=== PATIENT | male | born 1955 | race Caucasian/White ===

== ENCOUNTER 2023-01-07 01:33 | Inpatient (IN) | payer BC, MEDICARE ==
[2023-01-07 01:54] LABS: Glucose,Whole Blood 193 mg/dL (70-110)
[2023-01-07] MEDS ORDERED: SODIUM CHLORIDE 0.9% 1,000 ML IV STA ×2 (01:59)
--- NOTE | 2023-01-07 02:01 | ED ---
SOB HPI - General Chief Complaint: Dizziness Stated Complaint: dizziness Time Seen by Provider: 01/07/23 01:42 Source: patient, EMS, RN notes reviewed, old records reviewed Mode of arrival: EMS Limitations: no limitations - History of Present Illness Initial Comments: This is a 67-year-old male to the emergency department for evaluation of a month plus of severe shortness of breath weakness severely elevated heart rate. Patient states he is normally healthy no heart disease no COPD nonsmoker. Patient is in significant distress with severe exertional dyspnea. Patient is no travel history no known sick contacts no fevers cough or congestion but s everely short of breath and significant exertional shortness of breath. Patient was recently told he has significant swelling of his lower extremity and somewhat did mention that it was possibly concern for DVT. MD Complaint: shortness of breath, cough, chest pain, pain with inspiration, anxiety -: days(s) Radiation: back Severity: severe Severity scale (1-10): 10 Quality: dull Consistency: constant Improves With: nothing Worsens With: nothing Known History Of: COPD, asthma Context: recent URI, recent illness Associated Symptoms: chest pain, cough Treatments Prior to Arrival: none - Related Data Home Medications Medication Instructions Recorded Confirmed metFORMIN HCL ER [Glucophage XR] 1,000 mg PO BID 01/07/23 01/07/23 Previous Rx's Medication Instructions Recorded Apixaban [Eliquis Starter Pack 5 - 10 mg PO DIRECTED 30 Days 01/08/23 (for VTE)] #1 each Allergies Allergy/AdvReac Type Severity Reaction Status Date / Time latex Allergy Rash/Hives Verified 01/07/23 09:12 Review of Systems ROS Statement: Those systems with pertinent positive or pertinent negative responses have been documented in the HPI. ROS Other: All systems not noted in ROS Statement are negative. Past Medical History Past Medical History: No Reported History History of Any Multi-Drug Resistant Organisms: None Reported Past Surgical History: Joint Replacement Past Psychological History: No Psychological Hx Reported Smoking Status: Never smoker Past Alcohol Use History: None Reported Past Drug Use History: None Reported General Exam Limitations: no limitations General appearance: alert, in no apparent distress, anxious Head exam: Present: atraumatic, normocephalic, normal inspection Eye exam: Present: normal appearance, PERRL, EOMI. Absent: scleral icterus, conjunctival injection, periorbital swelling ENT exam: Present: normal exam, mucous membranes moist Neck exam: Present: normal inspection. Absent: tenderness, meningismus, lymphadenopathy Respiratory exam: Present: normal lung sounds bilaterally. Absent: respiratory distress, wheezes, rales, rhonchi, stridor Cardiovascular Exam: Present: normal rhythm, tachycardia, normal heart sounds. Absent: systolic murmur, diastolic murmur, rubs, gallop, clicks GI/Abdominal exam: Present: soft, normal bowel sounds. Absent: distended, tenderness, guarding, rebound, rigid Extremities exam: Present: normal inspection, full ROM, normal capillary refill. Absent: tenderness, pedal edema, joint swelling, calf tenderness Back exam: Present: normal inspection Neurological exam: Present: alert, oriented X3, CN II-XII intact Psychiatric exam: Present: normal affect, normal mood Skin exam: Present: warm, dry, intact, normal color. Absent: rash Course Vital Signs 01/07/23 01/07/23 01/07/23 01:41 01:57 02:01 Temperature 98.2 F Pulse Rate 121 H Respiratory 20 Rate Blood Pressure 152/115 116/87 O2 Sat by Pulse 95 93 L Oximetry 01/07/23 01/07/23 01/07/23 02:39 03:00 04:00 Temperature Pulse Rate 118 H 110 H 109 H Respiratory 20 18 18 Rate Blood Pressure 108/72 117/75 112/87 O2 Sat by Pulse 92 L 92 L 91 L Oximetry 01/07/23 01/07/23 05:22 05:35 Temperature 98.8 F Pulse Rate 112 H Respiratory 18 28 H Rate Blood Pressure 112/82 O2 Sat by Pulse 92 L Oximetry - Reevaluation(s) Reevaluation #1: 01/07/23 02:00 Medical record is reviewed Reevaluation #2: Patient has no change in symptoms here in the ER Reevaluation #3: Patient informed results and questions answered Reevaluation #4: 01/07/23 02:00 Was pt. sent in by a medical professional or institution (, [facility], STEELSCOPE OPERATOR, urgent care, hospital, or shelter...) When possible be specific @ -no Did you speak to anyone other than the patient for history (EMS, parent, family, police, friend...)? What history was obtained from this source @ -no Did you review nursing and triage notes (agree or disagree)? Why? @ -agree Are old charts reviewed (outside hosp., previous admission, EMS record, old EKG, old radiological studies, urgent care reports/EKG's, shelter records)? Report findings @ -yes Differential Diagnosis (chest pain, altered mental status, abdominal pain women, abdominal pain men, vaginal bleeding, weakness, fever, dyspnea, syncope, headache, dizziness, GI bleed, back pain, seizure, CVA, palpatations, mental health, musculoskeletal)? @ -prior EKG interpreted by me (3pts min.). @ -yes X-rays interpreted by me (1pt min.). @ -yes CT interpreted by me (1pt min.). @ -no U/S interpreted by me (1pt. min.). @ -no What testing was considered but not performed or refused? (CT, X-rays, U/S, labs)? Why? @ -none What meds were considered but not given or refused? Why? @ -none Did you discuss the management of the patient with other professionals (professionals i.e. , PA, STEELSCOPE OPERATOR, lab, RT, psych nurse, social security specialist, mineral ore processing labourer, teacher, county health officer, telehealth case manager)? Give summary @ -no Was smoking cessation discussed for >3mins.? @ -no Was critical care preformed (if so, how long)? @ -yes31 Were there social determinants of health that impacted care today? How? (Homelessness, low income, unemployed, alcoholism, drug addiction, transportation, low edu. Level, literacy, decrease access to med. care, retirement, rehab)? @ -none Was there de-escalation of care discussed even if they declined (Discuss DNR or withdrawal of care, Hospice)? DNR status @ -no What co-morbidities impacted this encounter? (DM, HTN, Smoking, COPD, CAD, Cancer, CVA, ARF, Chemo, Hep., AIDS, mental health diagnosis, sleep apnea, morbid obesity)? @ -none Was patient admitted / discharged? Hospital course, mention meds given and route, prescriptions, significant lab abnormalities, going to OR and other pertinent info. @ - 67 male to the emergency department for evaluation severe shortness of breath especially with exertion now. Patient does have significant pulmonary embolus and patient will be admitted for vascular consultation regarding PE and anticoagulation Admitted Undiagnosed new problem with uncertain prognosis? @ -no Drug Therapy requiring intensive monitoring for toxicity (Heparin, Nitro, Insulin, Cardizem)? @ -no Were any procedures done? @ -no Diagnosis/symptom? @ -Pulmonary embolism severe Acute, or Chronic, or Acute on Chronic? @ -Acute Uncomplicated (without systemic symptoms) or Complicated (systemic symptoms)? @ -Complicated Side effects of treatment? @ -no Exacerbation, Progression, or Severe Exacerbation? @ -exacerbation Poses a threat to life or bodily function? How? (Chest pain, USA, NC, pneumonia, PE, COPD, DKA, ARF, appy, cholecystitis, CVA, Diverticulitis, Homicidal, Suicidal, threat to staff... and all critical care pts) @ -yes with severe PE Reevaluation #5: 01/07/23 02:00 Differential Dyspnea: Coronary syndrome, arrhythmia, tamponade, asthma, COPD, pulmonary embolism, pneumonia, pneumothorax, pulmonary effusion, anaphylaxis, diabetic ketoacidosis, flailed chest, pulmonary contusion, diaphragmatic rupture, anemia, neuromuscular, this is not meant to be an all-inclusive list. Medical Decision Making - Medical Decision Making 67 male to the emergency department for evaluation severe shortness of breath especially with exertion now. Patient does have significant pulmonary embolus and patient will be admitted for vascular consultation regarding PE and anticoagulation - Lab Data Result diagrams: 01/08/23 05:42 01/08/23 05:42 Lab Results 01/07/23 01/07/23 01/07/23 Range/Units 01:53 02:00 02:00 WBC 15.9 H (3.8-10.6) k/uL RBC 4.88 (4.30-5.90) m/uL Hgb 15.1 (13.0-17.5) gm/dL Hct 45.3 (39.0-53.0) % MCV 92.9 (80.0-100.0) fL MCH 31.0 (25.0-35.0) pg MCHC 33.4 (31.0-37.0) g/dL RDW 12.9 (11.5-15.5) % Plt Count 319 (150-450) k/uL MPV 7.4 Neutrophils % 77 % Lymphocytes % 17 % Monocytes % 5 % Eosinophils % 1 % Basophils % 0 % Neutrophils # 12.2 H (1.3-7.7) k/uL Lymphocytes # 2.7 (1.0-4.8) k/uL Monocytes # 0.8 (0-1.0) k/uL Eosinophils # 0.1 (0-0.7) k/uL Basophils # 0.0 (0-0.2) k/uL PT 10.2 (9.0-12.0) sec INR 1.0 (<1.2) APTT 20.5 L (22.0-30.0) sec D-Dimer 12.25 H (<0.60) mg/L FEU Sodium (137-145) mmol/L Potassium (3.5-5.1) mmol/L Chloride (98-107) mmol/L Carbon Dioxide (22-30) mmol/L Anion Gap mmol/L BUN (9-20) mg/dL Creatinine (0.66-1.25) mg/dL Est GFR (CKD-EPI)AfAm (>60 ml/min/1.73 sqM) Est GFR (CKD-EPI)NonAf (>60 ml/min/1.73 sqM) Glucose (74-99) mg/dL POC Glucose (mg/dL) 193 H (70-110) mg/dL POC Glu Hem Marker ID Lema, Eli Calcium (8.4-10.2) mg/dL Phosphorus (2.5-4.5) mg/dL Magnesium (1.6-2.3) mg/dL Total Bilirubin (0.2-1.3) mg/dL AST (17-59) U/L ALT (4-49) U/L Alkaline Phosphatase (38-126) U/L Troponin I (0.000-0.034) ng/mL NT-Pro-B Natriuret Pep pg/mL Total Protein (6.3-8.2) g/dL Albumin (3.5-5.0) g/dL 01/07/23 01/07/23 Range/Units 02:00 02:00 WBC (3.8-10.6) k/uL RBC (4.30-5.90) m/uL Hgb (13.0-17.5) gm/dL Hct (39.0-53.0) % MCV (80.0-100.0) fL MCH (25.0-35.0) pg MCHC (31.0-37.0) g/dL RDW (11.5-15.5) % Plt Count (150-450) k/uL MPV Neutrophils % % Lymphocytes % % Monocytes % % Eosinophils % % Basophils % % Neutrophils # (1.3-7.7) k/uL Lymphocytes # (1.0-4.8) k/uL Monocytes # (0-1.0) k/uL Eosinophils # (0-0.7) k/uL Basophils # (0-0.2) k/uL PT (9.0-12.0) sec INR (<1.2) APTT (22.0-30.0) sec D-Dimer (<0.60) mg/L FEU Sodium 138 (137-145) mmol/L Potassium 5.6 H (3.5-5.1) mmol/L Chloride 106 (98-107) mmol/L Carbon Dioxide 19 L (22-30) mmol/L Anion Gap 13 mmol/L BUN 28 H (9-20) mg/dL Creatinine 1.20 (0.66-1.25) mg/dL Est GFR (CKD-EPI)AfAm 72 (>60 ml/min/1.73 sqM) Est GFR (CKD-EPI)NonAf 62 (>60 ml/min/1.73 sqM) Glucose 175 H (74-99) mg/dL POC Glucose (mg/dL) (70-110) mg/dL POC Glu Hem Marker ID Calcium 9.3 (8.4-10.2) mg/dL Phosphorus 3.8 (2.5-4.5) mg/dL Magnesium 1.8 (1.6-2.3) mg/dL Total Bilirubin 1.0 (0.2-1.3) mg/dL AST 41 (17-59) U/L ALT 22 (4-49) U/L Alkaline Phosphatase 58 (38-126) U/L Troponin I 0.093 H* (0.000-0.034) ng/mL NT-Pro-B Natriuret Pep 2310 pg/mL Total Protein 7.2 (6.3-8.2) g/dL Albumin 4.0 (3.5-5.0) g/dL - EKG Data -: EKG Interpreted by Me (EKG is sinus tachycardia 120 NV 182 QRS 102 QTC 373) - Radiology Data Radiology results: report reviewed (Chest x-ray could show pneumonia, CTA chest positive for PE with strain), image reviewed Critical Care Time Critical Care Time: Yes Total Critical Care Time: 31 Disposition Clinical Impression: Pulmonary embolism, Tachycardia, Dyspnea, Pneumonia Disposition: ADMITTED IP TO THIS HOSP Condition: Good Is patient prescribed a controlled substance at d/c from ED?: No Time of Disposition: 04:00
[2023-01-07 02:16] LABS: Basophils % (A) 0 %; Eosinophils # (A) 0.1 k/uL (0-0.7); Eosinophils % (A) 1 %; HCT 45.3 % (39.0-53.0); HGB 15.1 gm/dL (13.0-17.5); Lymphocytes # (A) 2.7 k/uL (1.0-4.8); Lymphocytes % (A) 17 %; MCHC 33.4 g/dL (31.0-37.0); MCV 92.9 fL (80.0-100.0); Mean Platelet Volume 7.4; Monocytes # (A) 0.8 k/uL (0-1.0); Monocytes % (A) 5 %; Neutrophils # (A) 12.2 k/uL (1.3-7.7); Neutrophils % (A) 77 %; Platelet Count 319 k/uL (150-450); RBC 4.88 m/uL (4.30-5.90); RDW 12.9 % (11.5-15.5); WBC 15.9 k/uL (3.8-10.6)
[2023-01-07 02:23] LABS: ALT 22 U/L (4-49); African American GFR (CKD) 72 (>60 ml/min/1.73 sqM); Anion Gap 13 mmol/L; Blood Urea Nitrogen 28 mg/dL (9-20); Calcium 9.3 mg/dL (8.4-10.2); Carbon Dioxide 19 mmol/L (22-30); Chloride 106 mmol/L (98-107); Glucose 175 mg/dL (74-99); Non-African American GFR(CKD) 62 (>60 ml/min/1.73 sqM); Sodium 138 mmol/L (137-145)
[2023-01-07 02:31] LABS: AST 41 U/L (17-59); Alkaline Phosphatase 58 U/L (38-126); Magnesium 1.8 mg/dL (1.6-2.3); NT-Pro-B-Type Natriuretic Pept 2310 pg/mL; Phosphorus 3.8 mg/dL (2.5-4.5); Potassium 5.6 mmol/L (3.5-5.1); Total Protein 7.2 g/dL (6.3-8.2)
[2023-01-07 02:35] LABS: Partial Thromboplastin Time 20.5 sec (22.0-30.0); Prothrombin Time 10.2 sec (9.0-12.0)
[2023-01-07] MEDS ORDERED: HEPARIN SODIUM 1,000 UN/ML (10ML VL) IV ONE (03:55)
[2023-01-07] MEDS ORDERED: HEPARIN SODIUM 1,000 UN/ML (10ML VL) IV PRN (03:55)
[2023-01-07] MEDS ORDERED: HEPARIN SOD,PORK IN 0.45% NACL 25,000 UNIT in 0.45% NACL 1 250ML.BAG IV SCH ×3 (04:00→12:00)
[2023-01-07] MEDS ORDERED: ONDANSETRON 4 MG/2 ML VIAL IVP PRN (04:10)
[2023-01-07] MEDS ORDERED: HYDROmorphone 1 MG/ML 1 ML SYRINGE IVP PRN ×2 (04:10→14:23)
[2023-01-07] MEDS ORDERED: NALOXONE 0.4 MG/ML 1 ML VIAL IV PRN (04:10)
[2023-01-07] MEDS ORDERED: MORPHINE SULFATE 4 MG/ML SYRINGE IV PRN (04:10)
--- NOTE | 2023-01-07 04:11 | XR ---
EXAM: XR Chest, 1 View CLINICAL HISTORY: ITS.REASON XR Reason: cp. Dizziness fatigue and chest pain TECHNIQUE: Frontal view of the chest. COMPARISON: No relevant prior studies available. FINDINGS: Lungs: Patchy airspace disease in the right upper lobe. Pleural space: Unremarkable. No pneumothorax. Heart: Unremarkable. No cardiomegaly. Mediastinum: Unremarkable. Bones/joints: Unremarkable. IMPRESSION: Patchy airspace disease in the right upper lobe. May represent pneumonia. Consider follow-up to ensure resolution.
[2023-01-07] MEDS ORDERED: AZITHROMYCIN 500 MG in SODIUM CHLORIDE 0.9% 250 ML IVPB STA (04:13)
[2023-01-07] MEDS: SODIUM CHLORIDE 0.9% 1,000 ML IV SCH ×3 (04:20→19:57)
--- NOTE | 2023-01-07 04:20 | CT ---
EXAM: CT Angiography Chest With Intravenous Contrast CLINICAL HISTORY: ITS.REASON CT Reason: pe. : Pt. states he recently was sick, possibly with flu. Pt. c/o dizziness and increased SOB on and off x2 weeks. Pt. denies CP, N/V. TECHNIQUE: Axial computed tomographic angiography images of the chest with intravenous contrast. CTDI is 24 mGy and DLP is 499.8 mGy-cm. This CT exam was performed using one or more of the following dose reduction techniques: automated exposure control, adjustment of the mA and/or kV according to patient size, and/or use of iterative reconstruction technique. MIP reconstructed images were created and reviewed. COMPARISON: Chest x-ray dated 01/07/2023 FINDINGS: Pulmonary arteries: Saddle pulmonary embolus and large amount bilateral pulmonary emboli in the main pulmonary arteries extending into most branches. Enlarged main pulmonary artery. Aorta: No acute findings. No thoracic aortic aneurysm. Lungs: Consolidation and patchy airspace disease in the posterior right upper lobe. Pleural space: Unremarkable. No significant effusion. No pneumothorax. Heart: Enlarged right ventricle, flattening of the intraventricular septum. RV/LV ratio 2.3. No significant pericardial effusion. Bones/joints: No acute fracture. No dislocation. Soft tissues: Unremarkable. Lymph nodes: Unremarkable. No enlarged lymph nodes. IMPRESSION: 1. Saddle pulmonary embolus and large amount bilateral pulmonary emboli in the main pulmonary arteries extending into most branches. Evidence of right heart strain. 2. Consolidation and patchy airspace disease in the posterior right upper lobe. Differential diagnosis includes pneumonia, pulmonary infarct, malignancy. Recommend follow-up to ensure resolution. <MYCVCSECTION> Communications: 01/07/23 04:23 Call Doctor Regarding Pulmonary Embolism, called Dr. Neal on 01/07 04:23 (-04:00)
[2023-01-07 05:35] LABS: Glucose,Whole Blood 154 mg/dL (70-110)
[2023-01-07] MEDS ORDERED: DEXTROSE 50% SYRINGE 50 ML IVP PRN ×2 (05:53)
--- NOTE | 2023-01-07 06:02 | P.CNPUL ---
History of Present Illness Consult date: 01/07/23 Requesting physician: Stephen Lacey Reason for consult: pulmonary embolism Chief complaint: Shortness of breath History of present illness: I am seeing this patient in new consultation today 01/07/2023 for a large saddle pulmonary embolism with right-sided heart strain. Patient is a 67-year-old white male with past medical history significant for diabetes mellitus type 2. Patient presented to emergency room earlier this morning complaining of progressively worsening shortness of breath over the last month. He states that this was preceded by right leg pain and swelling. He did see his primary care provider, Dr. Tang, but was reportedly not directed to the ER at that time. Jose chan reports back pain localized to a right upper/medial location that started soon after his shortness of breath began. He denies any cough, hemoptysis, fever, chest pain. Chest CTA on arrival shows a large saddle pulmonary embolism extending into most branches. There was CT evidence of right heart strain with an increased RV/LV ratio 2.3 and a enlarged pulmonary artery. There is also a consolidation in the posterior right upper lobe concerning for pulmonary infarct. Troponin was elevated at 0.093. NT proBNP elevated at 2310. Patient is currently sitting up in bed, on 3 L/m nasal cannula, in no distress at rest. He does get severely short of breath with any exertion. Heart rhythm is currently sinus tachycardia on 114 bpm. Blood pressure is normotensive. Heparin is infusing per high intensity protocol at 18 units per kilogram per hour. Echocardiogram is pending. Vascular services has been consulted for possible EKOS. Patient denies any previous episodes of blood clots or pulmonary emboli. Denies any family history of coagulopathy. Denies any recent trauma or surgery. Denies any history of cancer. Denies any recent prolonged travel. His only reported prescribed medication is metformin. CBC on arrival showed a WBC count of 15.9, hemoglobin 15.1, hematocrit 45.3, platelets 319. BMP shows sodium 138, potassium 5.6, chloride 106, serum bicarb 19, BUN 28, creatinine 1.2, glucose 175. Normal saline is infusing at 130 ML's per hour. The patient is going to be admitted to the intensive care unit for closer monitoring. He is, however, hemodynamically stable at this time. Vascular consult has been obtained for possible EKOS. Review of Systems REVIEW OF SYSTEMS: CONSTITUTIONAL: Denies any recent significant weight loss or weight gain. EYES: Denies change in vision. EARS, NOSE, MOUTH, THROAT: Denies headaches, denies sore throat. CARDIOVASCULAR: Denies chest pain, palpitations or syncopal episodes. RESPIRATORY: See HPI GASTROINTESTINAL: Denies change in appetite, abdominal pain, nausea and vomiting, or diarrhea GENITOURINARY: Denies hematuria, denies infections. MUSKULOSKELETAL: Denies pain, denies swelling. INTEGUMENTARY: Denies rash, denies eczema. NEUROLOGICAL: Denies recent memory loss, no recent seizure activity. PSYCHIATRIC: Denies anxiety, denies depression. HEMATOLOGIC/LYMPHATIC: Denies anemia, denies enlarged lymph node Past Medical History Past Medical History: No Reported History History of Any Multi-Drug Resistant Organisms: None Reported Past Surgical History: Joint Replacement Past Psychological History: No Psychological Hx Reported Smoking Status: Never smoker Past Alcohol Use History: None Reported Past Drug Use History: None Reported Medications and Allergies Allergies Allergy/AdvReac Type Severity Reaction Status Date / Time No Known Allergies Allergy Verified 01/07/23 01:46 Physical Exam Vitals: Vital Signs Temp Pulse Resp BP Pulse Ox 01/07/23 05:22 98.8 F 112 H 18 112/82 92 L 01/07/23 04:00 109 H 18 112/87 91 L 01/07/23 03:00 110 H 18 117/75 92 L 01/07/23 02:39 118 H 20 108/72 92 L 01/07/23 02:01 116/87 01/07/23 01:57 93 L 01/07/23 01:41 98.2 F 121 H 20 152/115 95 Intake and Output 01/06/23 01/06/23 01/07/23 14:59 22:59 06:59 Other: Weight 97.522 kg GENERAL EXAM: Alert, 67-year-old white male, fairly comfortable in no apparent distress while at rest. HEAD: Normocephalic and atraumatic EYES: Normal reaction of pupils, equal size. NOSE: Clear with pink turbinates. THROAT: No erythema or exudates. NECK: No masses, no JVD. CHEST: No chest wall deformity. LUNGS: Equal air entry with inspiratory crackles heard in the right upper lobe. On 3 L/m nasal cannula. He does exhibit significant respiratory distress with any amount of exertion. CVS: S1 and S2 normal with no audible murmur, regular rhythm. No extra heart sounds. Heart rate currently 140 bpm. ABDOMEN: No hepatosplenomegaly, active bowel sounds, no guarding or rigidity. SPINE: No scoliosis or deformity SKIN: No rashes CENTRAL NERVOUS SYSTEM: No focal deficits, tone is normal in all 4 extremities. EXTREMITIES: There is no peripheral edema, clubbing, or cyanosis. Peripheral pulses are intact. Results - Laboratory Findings CBC and BMP: 01/07/23 02:00 01/07/23 02:00 PT/INR, D-dimer PT 10.2 sec (9.0-12.0) 01/07/23 02:00 INR 1.0 (<1.2) 01/07/23 02:00 D-Dimer 12.25 mg/L FEU (<0.60) H 01/07/23 02:00 Abnormal lab findings: Abnormal Labs 01/07/23 01/07/23 01/07/23 01:53 02:00 02:00 WBC 15.9 H Neutrophils # 12.2 H APTT 20.5 L D-Dimer 12.25 H Potassium Carbon Dioxide BUN Glucose POC Glucose (mg/dL) 193 H Troponin I 01/07/23 01/07/23 02:00 02:00 WBC Neutrophils # APTT D-Dimer Potassium 5.6 H Carbon Dioxide 19 L BUN 28 H Glucose 175 H POC Glucose (mg/dL) Troponin I 0.093 H* - Diagnostic Findings Chest x-ray: image reviewed CT scan - chest: image reviewed Assessment and Plan Assessment: Large saddle pulmonary embolism extending into most pulmonary branches with CT evidence of right-sided heart strain. There was also evidence of wedge shaped consolidation in the posterior right upper lobe consistent with Malik hump sign concerning for pulmonary infarct. Infectious process is felt to be unlikely. Troponins elevated at 0.093. NT proBNP elevated at 2300. Echocardiogram is pending. Acute hypoxemic respiratory failure, secondary to above, currently on 3 L/m nasal cannula Leukocytosis, likely reactive to PE Diabetes mellitus type 2, [id number] Obesity, BMI of 30.8 kg/m plan: Patient's medications, labs, and imaging were reviewed Continue IV heparin per high intensity protocol at this time Vascular was consulted for possible EKOS There is CT evidence of right-sided heart strain Obtain stat 2-D echo Obtain venous Doppler of bilateral lower extremities Hemodynamically, the patient appears stable at this time He will be admitted to the intensive care unit for closer monitoring and possible EKOS. I have personally seen and examined the patient, performed the documentation and the assessment and plan as written. Number of minutes spent on the visit:20 Time with Patient: Greater than 30
[2023-01-07] MEDS ORDERED: INSULIN REGULAR 100 UNIT/ML VIAL (IV) IV ONE (06:04)
[2023-01-07] MEDS ORDERED: DEXTROSE 50% SYRINGE 50 ML IVP STA (06:04)
--- NOTE | 2023-01-07 06:04 | P.HPIM ---
History of Present Illness H&P Date: 01/07/23 Chief Complaint: Shortness of breath 67-year-old male with diabetes mellitus Patient coming in with one-month history of progressive shortness of breath and palpitations. He reports the symptoms started gradually but has been getting worse to the point now he feels short of breath even at rest while doing nothing he feels that his heart is always racing denies any associated chest pain denies any nausea vomiting dizziness lightheadedness changes in vision or hearing or any new focal neuro deficits. He denies any history of blood clots or bleeding denies any recent travel her hospital stay. He reports recent history of some injury to his right lower extremity where he dropped some logs on he noticed some swelling and tenderness in his right calf muscle and right thigh for a few days and then improved gradually. He's been following up with his doctor for his heart racing and shortness of breath and he had scheduled an appointment with cardiology on the of this month Today his symptoms got so bad he decided to come in for evaluation In the ED CT angios the chest revealed saddle embolus with right RV strain. Patient reports history of diabetes mellitus denies any cardiac disease history of stroke or blood clots Denies tobacco smoking and illicit drugs or heavy alcohol review of systems Pertinent positives as noted in HPI. All other systems were reviewed and are negative on exam Constitutional: Patient to continue on supplemental oxygen Eyes: Anicteric sclerae, moist conjunctiva, Pupils equal round reactive to light ENMT: NC/AT Oropharynx clear, no erythema, or exudates Neck: Supple, no masses, or JVD No carotid bruits No thyromegaly Lungs: Clear to auscultation Clear to percussion Normal respiratory effort, no accessory muscle use Cardiovascular: Heart tachycardia No murmurs, gallops, or rubs No peripheral edema Abdominal: Soft Nontender, no guarding, rebound or rigidity Abdomen moving with respiration Normoactive bowel sounds No hepatomegaly, No splenomegaly No palpable mass No abdominal wall hernia noted Skin: Normal temperature, tone, texture, turgor No induration No subcutaneous nodules No rash, lesions No ulcers Extremities: No digital cyanosis No clubbing Pedal pulses intact and symmetrical Radial pulses intact and symmetrical No calf tenderness Psychiatric: Alert and oriented to person, place and time Appropriate affect fair judgement Neuro Muscles Strength 5/5 in all 4 extremities Sensation to light touch grossly present throughout Cranial nerves II-XII grossly intact Lymphatics: no palpable cervical or supraclavicular lymph nodes Past Medical History Past Medical History: No Reported History, Diabetes Mellitus History of Any Multi-Drug Resistant Organisms: None Reported Past Surgical History: Joint Replacement Past Psychological History: No Psychological Hx Reported Smoking Status: Never smoker Past Alcohol Use History: None Reported Past Drug Use History: None Reported Medications and Allergies Allergies Allergy/AdvReac Type Severity Reaction Status Date / Time No Known Allergies Allergy Verified 01/07/23 01:46 Physical Exam Vitals: Vital Signs Temp Pulse Resp BP Pulse Ox 01/07/23 05:22 98.8 F 112 H 18 112/82 92 L 01/07/23 04:00 109 H 18 112/87 91 L 01/07/23 03:00 110 H 18 117/75 92 L 01/07/23 02:39 118 H 20 108/72 92 L 01/07/23 02:01 116/87 01/07/23 01:57 93 L 01/07/23 01:41 98.2 F 121 H 20 152/115 95 Intake and Output 01/06/23 01/06/23 01/07/23 14:59 22:59 06:59 Other: Weight 97.522 kg Results CBC & Chem 7: 01/07/23 02:00 01/07/23 02:00 Labs: Abnormal Lab Results - Last 24 Hours (Table) 01/07/23 01/07/23 01/07/23 Range/Units 01:53 02:00 02:00 WBC 15.9 H (3.8-10.6) k/uL Neutrophils # 12.2 H (1.3-7.7) k/uL APTT 20.5 L (22.0-30.0) sec D-Dimer 12.25 H (<0.60) mg/L FEU Potassium (3.5-5.1) mmol/L Carbon Dioxide (22-30) mmol/L BUN (9-20) mg/dL Glucose (74-99) mg/dL POC Glucose (mg/dL) 193 H (70-110) mg/dL Troponin I (0.000-0.034) ng/mL 01/07/23 01/07/23 01/07/23 Range/Units 02:00 02:00 05:34 WBC (3.8-10.6) k/uL Neutrophils # (1.3-7.7) k/uL APTT (22.0-30.0) sec D-Dimer (<0.60) mg/L FEU Potassium 5.6 H (3.5-5.1) mmol/L Carbon Dioxide 19 L (22-30) mmol/L BUN 28 H (9-20) mg/dL Glucose 175 H (74-99) mg/dL POC Glucose (mg/dL) 154 H (70-110) mg/dL Troponin I 0.093 H* (0.000-0.034) ng/mL Assessment and Plan Assessment: 67-year-old male with diabetes mellitus coming in for palpitations and shortness of breath contrast I discussed the case with the ED doctor and accepted the admission for symptomatic PE with saddle embolus and RV strain with anticipated length of stay more than 2 midnights Acute hypoxic respiratory failure Acute saddle pulmonary embolism with large amount bilateral pulmonary emboli in the main pulmonary arteries extending into most branches with RV strain as shown CT angiogram of the chest showed saddle pulmonary embolus along with patchy airspace disease with severe right upper lobe Supplemental oxygen as needed Admission to the ICU Cardiac monitoring Vascular surgery for EKOS Monitor vital signs Heparin drip Check right lower extremity Doppler ultrasound Elevated d-dimer 12.25 Blood work overall unremarkable hemoglobin 15.1 White count 15.9, most likely reactive leukocytosis monitor for any fevers Moderately elevated potassium Potassium 5.6 Continue to monitor closely potassium shifter ordered (insulin and dextrose) Renal function unremarkable sodium 138, BUN 28, creatinine 1.2 Chronic conditions Diabetes mellitus Insulin sliding scale Full code DVT prophylaxis on heparin drip
[2023-01-07 07:37] LABS: Glucose,Whole Blood 224 mg/dL (70-110)
--- NOTE | 2023-01-07 07:54 | US ---
EXAMINATION TYPE: US venous doppler duplex LE RT DATE OF EXAM: 01/07/2023 7:19 AM COMPARISON: NONE CLINICAL INDICATION: Male, 67 years old with history of dvt; new PE's SIDE PERFORMED: Right TECHNIQUE: The lower extremity deep venous system is examined utilizing real time linear array sonog roscoe with graded compression, doppler sonography and color-flow sonography. VESSELS IMAGED: Common Femoral Vein Deep Femoral Vein Greater Saphenous Vein * Femoral Vein Popliteal Vein Small Saphenous Vein * Proximal Calf Veins (* superficial vessels) Right Leg: Internal echoes that are not compressible within proximal calf vein and anterior peroneal Otherwise, Grayscale, color doppler, spectral doppler imaging performed of the deep veins of the lowe r extremities. There is normal flow, compressibility, vascular waveforms. IMPRESSION: Deep vein thrombosis of the proximal calf veins.
[2023-01-07] MEDS: INSULIN ASPART (NovoLOG) 100 UNIT/ML VIAL SQ SCH ×4 (08:07→20:31)
[2023-01-07] MEDS ORDERED: ALTEPLASE 6 MG in SODIUM CHLORIDE 0.9% 144 ML IV ONE ×4 (11:49)
--- NOTE | 2023-01-07 11:52 | P.GSCN ---
History of Present Illness Consult date: 01/07/23 Reason for Consult: Saddle Pulmonary embolism Requesting physician: Stephen Lacey History of present illness: This is a pleasant 67-year-old male with a past medical history including diabetes mellitus who presented to the emergency department with complaints of shortness of breath especially on exertion for over the last month's duration. Progressively getting worse. Patient had elevated d-dimer underwent CT angiogram of the chest saddle pulmonary embolus with large amount bilateral pulmonary emboli with evidence of right heart strain. Patient also with elevated troponins 2. Venous duplex of the right lower extremity shows a positive DVT. Patient denies any previous history of pulmonary embolism. No recent surgeries or travel. No known family history of clotting disorders. Vascular surgery was consulted for pulmonary embolism concern for right heart strain. The patient currently admitted to the ICU with 3 L nasal cannula oxygen saturation 90% heart rate 99 respiratory rate 18 blood pressure 112/82. He is sitting up in bed does not appear to be in any distress. He denies any chest p ain at this time, shortness of breath somewhat improved. He was started on heparin drip. Patient states he did have some swelling in the right lower extremity no significant pain. Review of Systems A 14 point review systems was completed all pertinent positives and negatives as stated in the HPI. Past Medical History Past Medical History: No Reported History, Diabetes Mellitus History of Any Multi-Drug Resistant Organisms: None Reported Past Surgical History: Joint Replacement Past Anesthesia/Blood Transfusion Reactions: No Reported Reaction Past Psychological History: No Psychological Hx Reported Smoking Status: Never smoker Past Alcohol Use History: None Reported Past Drug Use History: None Reported Medications and Allergies Home Medications Medication Instructions Recorded Confirmed Type metFORMIN HCL ER [Glucophage XR] 1,000 mg PO BID 01/07/23 01/07/23 History Allergies Allergy/AdvReac Type Severity Reaction Status Date / Time latex Allergy Rash/Hives Verified 01/07/23 09:12 Surgical - Exam Vital Signs Temp Pulse Resp BP Pulse Ox 98.2 F 121 H 20 152/115 95 01/07/23 01:41 01/07/23 01:41 01/07/23 01:41 01/07/23 01:41 01/07/23 01:41 General appearance: The patient is alert, oriented, appears in no acute distress. HET: Head is normocephalic and atraumatic. Pupils are equal and reactive. Neck: Supple. Heart: Regular. Lungs: Equal expansion, normal respiratory effort. Abdomen: Soft, nontender, nondistended. Extremities: Normal skin color and turgor. Neurological: No focal deficits. Results - Labs 01/07/23 02:00 01/07/23 02:00 Abnormal Lab Results - Last 24 Hours (Table) 01/07/23 01/07/23 01/07/23 Range/Units 01:53 02:00 02:00 WBC 15.9 H (3.8-10.6) k/uL Neutrophils # 12.2 H (1.3-7.7) k/uL APTT 20.5 L (22.0-30.0) sec D-Dimer 12.25 H (<0.60) mg/L FEU Potassium (3.5-5.1) mmol/L Carbon Dioxide (22-30) mmol/L BUN (9-20) mg/dL Glucose (74-99) mg/dL POC Glucose (mg/dL) 193 H (70-110) mg/dL Troponin I (0.000-0.034) ng/mL 01/07/23 01/07/23 01/07/23 Range/Units 02:00 02:00 05:34 WBC (3.8-10.6) k/uL Neutrophils # (1.3-7.7) k/uL APTT (22.0-30.0) sec D-Dimer (<0.60) mg/L FEU Potassium 5.6 H (3.5-5.1) mmol/L Carbon Dioxide 19 L (22-30) mmol/L BUN 28 H (9-20) mg/dL Glucose 175 H (74-99) mg/dL POC Glucose (mg/dL) 154 H (70-110) mg/dL Troponin I 0.093 H* (0.000-0.034) ng/mL 01/07/23 01/07/23 Range/Units 05:40 07:36 WBC (3.8-10.6) k/uL Neutrophils # (1.3-7.7) k/uL APTT (22.0-30.0) sec D-Dimer (<0.60) mg/L FEU Potassium (3.5-5.1) mmol/L Carbon Dioxide (22-30) mmol/L BUN (9-20) mg/dL Glucose (74-99) mg/dL POC Glucose (mg/dL) 224 H (70-110) mg/dL Troponin I 0.165 H* (0.000-0.034) ng/mL Diabetes panel 01/07/23 Range/Units 02:00 Sodium 138 (137-145) mmol/L Potassium 5.6 H (3.5-5.1) mmol/L Chloride 106 (98-107) mmol/L Carbon Dioxide 19 L (22-30) mmol/L BUN 28 H (9-20) mg/dL Creatinine 1.20 (0.66-1.25) mg/dL Glucose 175 H (74-99) mg/dL Calcium 9.3 (8.4-10.2) mg/dL AST 41 (17-59) U/L ALT 22 (4-49) U/L Alkaline Phosphatase 58 (38-126) U/L Total Protein 7.2 (6.3-8.2) g/dL Albumin 4.0 (3.5-5.0) g/dL Calcium panel 01/07/23 Range/Units 02:00 Calcium 9.3 (8.4-10.2) mg/dL Phosphorus 3.8 (2.5-4.5) mg/dL Albumin 4.0 (3.5-5.0) g/dL Pituitary panel 01/07/23 Range/Units 02:00 Sodium 138 (137-145) mmol/L Potassium 5.6 H (3.5-5.1) mmol/L Chloride 106 (98-107) mmol/L Carbon Dioxide 19 L (22-30) mmol/L BUN 28 H (9-20) mg/dL Creatinine 1.20 (0.66-1.25) mg/dL Glucose 175 H (74-99) mg/dL Calcium 9.3 (8.4-10.2) mg/dL Adrenal panel 01/07/23 Range/Units 02:00 Sodium 138 (137-145) mmol/L Potassium 5.6 H (3.5-5.1) mmol/L Chloride 106 (98-107) mmol/L Carbon Dioxide 19 L (22-30) mmol/L BUN 28 H (9-20) mg/dL Creatinine 1.20 (0.66-1.25) mg/dL Glucose 175 H (74-99) mg/dL Calcium 9.3 (8.4-10.2) mg/dL Total Bilirubin 1.0 (0.2-1.3) mg/dL AST 41 (17-59) U/L ALT 22 (4-49) U/L Alkaline Phosphatase 58 (38-126) U/L Total Protein 7.2 (6.3-8.2) g/dL Albumin 4.0 (3.5-5.0) g/dL - Imaging Comments: Chest CT angiogram: Sagittal pulmonary embolus and large amount bilateral pulmonary emboli in the main pulmonary arteries extending into most branches. Evidence of right heart strain. Consolidation and patchy airspace disease in the posterior right upper lobe. Differential diagnosis includes pneumonia, pulmonary infarct, malignancy. Recommend follow-up to ensure resolution. Venous duplex right lower extremity with deep vein thrombosis of the proximal calf veins Assessment and Plan Assessment: 1. Saddle pulmonary embolus with right heart strain 2. Right lower extremity DVT 3. Diabetes mellitus Plan: 1. Keep patient nothing by mouth 2. Continue heparin drip 3. Patient to be scheduled for EKOS today 4. Continue medical management per ICU in primary medical team Thank you for this consultation, we will continue to follow. The impression and plan of care has been dictated as directed. I performed a history and examination of this patient, discussed the same with the dictator. I agree with the dictator's note ,documented as a scribe. Any additional findings or plans will be noted.
[2023-01-07] MEDS ORDERED: fentaNYL (PF) 50 MCG/ML 2 ML AMP IVP ONE (11:55)
[2023-01-07] MEDS ORDERED: IV FLUID CONTINUATION 1,000 ML IV ONE (11:55)
[2023-01-07] MEDS ORDERED: MIDAZOLAM 2 MG/2 ML VIAL IVP ONE (11:55)
[2023-01-07] MEDS ORDERED: LIDOCAINE 1% INJ 10MG/ML (20 ML MDV) SQ ONE (11:56)
[2023-01-07] MEDS ORDERED: SODIUM CHLORIDE 0.9% 1,000 ML IV SCH ×2 (12:00)
--- NOTE | 2023-01-07 12:51 | P.OP ---
Date of Procedure: 01/07/23 Description of Procedure: Preoperative diagnosis: Submassive bilateral pulmonary emboli Postoperative diagnosis: Same Procedure: #1 ultrasound-guided right common femoral vein access of central venous catheters x2 #2 bilateral selective pulmonary angiogram #3 Initiation of pulmonary pharmacal mechanical thrombolysis with EKOS #4 Moderate conscious sedation x 35 minutes, personal monitoring certified RN administration with hemodynamic monitoring Surgeon: Sarah Grover D.O. EBL: Less than 10 mL IV fluids: See records Urine output: See records Drains: None Complications: None immediately apparent Condition: Stable to ICU Operative indication and findings: Patient is a 67-year-old male with recent worsening of breathing along with tachycardia and came to the ER was evaluated and workup and found to have evidence of submassive bilateral pulmonary emboli with lateral component. His troponins are elevated, BNP is elevated. The computed tomography scan shows evidence of right heart strain with moderate ventricle and contrast reflux into the vena cava. On bedside echocardiogram the right heart did appear dilated with flattening of the septum. No final report dictated at the time of taking the patient for intervention. Risks and benefits of going forward with pulmonary thrombolysis were discussed. The patient seemingly understood and was willing to proceed Procedure in detail: [The patient was taken to the radiology suite and placed in supine position. Bilateral groins are prepped and draped in usual sterile fashion. A preprocedure timeout was performed, all parties were in agreement. The right common femoral vein was identified and found to be compressible without any evidence of visible thrombus. The skin overlying was anesthetized 1% lidocaine plain. A multipurpose needle was used and the vein was accessed and a wire was placed. This was done again through a separate access site. 2, 6-Tristanian sheaths were placed. Using catheters and wires the right and left pulmonary arteries were accessed. Pulmonic angiograms were performed confirming positioning. An EKOS ultrasonic pharmacomechanical infusion catheter was placed and confirmed appropriate positioning within the pulmonary arteries. The catheters were hooked up to appropriate fluid infusions for the Optelyse protocol for submassive pulmonary emboli. The sheaths were sutured in place. Dressing was placed. The patient was transferred back to ICU in stable condition having tolerated the procedure well.
[2023-01-07 13:22] LABS: Glucose,Whole Blood 93 mg/dL (70-110)
--- NOTE | 2023-01-07 13:41 | IR ---
EXAMINATION TYPE: IR transcath infusion therapy DATE OF EXAM: 01/07/2023 COMPARISON: NONE HISTORY: Fluoroscopy time. Fluoroscopy was provided to the referring clinician.
[2023-01-07 18:24] LABS: Glucose,Whole Blood 98 mg/dL (70-110)
[2023-01-07 19:12] LABS: Basophils % (A) 0 %; Eosinophils # (A) 0.1 k/uL (0-0.7); Eosinophils % (A) 1 %; HCT 40.7 % (39.0-53.0); HGB 13.3 gm/dL (13.0-17.5); Lymphocytes # (A) 2.7 k/uL (1.0-4.8); Lymphocytes % (A) 20 %; MCH 30.8 pg (25.0-35.0); MCHC 32.7 g/dL (31.0-37.0); MCV 94.1 fL (80.0-100.0); Mean Platelet Volume 7.6; Monocytes # (A) 0.6 k/uL (0-1.0); Monocytes % (A) 5 %; Neutrophils # (A) 9.9 k/uL (1.3-7.7); Neutrophils % (A) 74 %; Platelet Count 259 k/uL (150-450); RBC 4.33 m/uL (4.30-5.90); RDW 12.9 % (11.5-15.5); WBC 13.5 k/uL (3.8-10.6)
[2023-01-07] MEDS: HYDROmorphone 1 MG/ML 1 ML SYRINGE IVP PRN (19:35)
[2023-01-07 20:08] LABS: Glucose,Whole Blood 171 mg/dL (70-110)
[2023-01-08 02:08] LABS: Basophils % (A) 0 %; Eosinophils # (A) 0.2 k/uL (0-0.7); Eosinophils % (A) 2 %; HCT 36.6 % (39.0-53.0); HGB 12.1 gm/dL (13.0-17.5); Lymphocytes # (A) 2.8 k/uL (1.0-4.8); Lymphocytes % (A) 27 %; MCH 30.7 pg (25.0-35.0); Mean Platelet Volume 8.1; Monocytes # (A) 0.7 k/uL (0-1.0); Monocytes % (A) 6 %; Neutrophils # (A) 6.6 k/uL (1.3-7.7); Neutrophils % (A) 64 %; Platelet Count 245 k/uL (150-450); RBC 3.94 m/uL (4.30-5.90); RDW 13.1 % (11.5-15.5); WBC 10.5 k/uL (3.8-10.6)
[2023-01-08] MEDS: HYDROmorphone 1 MG/ML 1 ML SYRINGE IVP PRN (02:38)
[2023-01-08 07:04] LABS: Basophils % (A) 0 %; Eosinophils # (A) 0.2 k/uL (0-0.7); Eosinophils % (A) 2 %; HCT 37.5 % (39.0-53.0); HGB 12.2 gm/dL (13.0-17.5); Lymphocytes # (A) 2.6 k/uL (1.0-4.8); Lymphocytes % (A) 29 %; MCH 30.8 pg (25.0-35.0); MCHC 32.5 g/dL (31.0-37.0); MCV 94.7 fL (80.0-100.0); Mean Platelet Volume 7.5; Monocytes # (A) 0.5 k/uL (0-1.0); Monocytes % (A) 6 %; Neutrophils # (A) 5.6 k/uL (1.3-7.7); Neutrophils % (A) 62 %; Platelet Count 230 k/uL (150-450); RBC 3.96 m/uL (4.30-5.90); RDW 12.8 % (11.5-15.5)
[2023-01-08] MEDS: SODIUM CHLORIDE 0.9% 1,000 ML IV SCH ×2 (07:14→09:50)
[2023-01-08 07:16] LABS: African American GFR (CKD) >90 (>60 ml/min/1.73 sqM); Anion Gap 3 mmol/L; Blood Urea Nitrogen 18 mg/dL (9-20); Calcium 7.6 mg/dL (8.4-10.2); Carbon Dioxide 22 mmol/L (22-30); Chloride 110 mmol/L (98-107); Glucose 120 mg/dL (74-99); Non-African American GFR(CKD) 82 (>60 ml/min/1.73 sqM); Potassium 4.5 mmol/L (3.5-5.1); Sodium 135 mmol/L (137-145)
[2023-01-08 07:27] LABS: Glucose,Whole Blood 158 mg/dL (70-110)
[2023-01-08] MEDS ORDERED: Apixaban Initiation Dose--VTE 5 MG TAB PO SCH (09:00)
[2023-01-08 09:20] LABS: Glucose,Whole Blood 156 mg/dL (70-110)
[2023-01-08] MEDS: INSULIN ASPART (NovoLOG) 100 UNIT/ML VIAL SQ SCH ×3 (09:32→16:48)
--- NOTE | 2023-01-08 11:03 | P.PN ---
Subjective Progress Note Date: 01/08/23 Principal diagnosis: Saddle embolism with right heart strain Patient seen and examined today in the ICU as a follow-up. Yesterday he underwent thrombolysis with EKOS. Catheters and sheaths still in place. Patient without any signs of bleeding. States breathing seems a little bit easier today. Heparin infusing. Grover catheter in place. He is without any other complaints, no abdominal pain, nausea or vomiting. He he is tolerating regular diet. Objective - Vital Signs Vital signs: Vital Signs Temp 98.4 F 01/08/23 08:00 Pulse 77 01/08/23 10:30 Resp 20 01/08/23 10:30 BP 114/76 01/08/23 10:30 Pulse Ox 93 L 01/08/23 10:30 FiO2 21 01/08/23 10:19 Intake & Output 01/07/23 01/08/23 01/08/23 18:59 06:59 18:59 Intake Total 1775 1430 650 Output Total 245 440 205 Balance 1530 990 445 Weight 100.2 kg Intake: IV 1775 1430 650 Sodium Chloride 0.9% 1, 1663 660 580 000 ml @ 130 mls/hr IV . Q7H42M [facility] Rx#:[id number] Sodium Chloride 0.9% 1, 385 35 000 ml @ 35 mls/hr IV . Q24H [facility] Rx#:[id number] Sodium Chloride 0.9% 1, 385 35 000 ml @ 35 mls/hr IV . Q24H [facility] Rx#:[id number] Output: Urine 245 440 205 Other: Voiding Method Indwelling Catheter Indwelling Catheter - Exam General appearance: The patient is alert, oriented, appears in no acute distress. HET: Head is normocephalic and atraumatic. Pupils are equal and reactive. Neck: Supple. Heart: Regular. Lungs: Equal expansion, normal respiratory effort. Abdomen: Soft, nontender, nondistended. Extremities: Normal skin color and turgor. Right groin with catheter and sheaths in place without any hematoma or bleeding. Neurological: No focal deficits. Strength and sensation are grossly intact. - Labs CBC & Chem 7: 01/08/23 05:42 01/08/23 05:42 Labs: Abnormal Lab Results - Last 24 Hours (Table) 01/07/23 01/07/23 01/08/23 Range/Units 18:53 20:07 01:44 WBC 13.5 H (3.8-10.6) k/uL RBC 3.94 L (4.30-5.90) m/uL Hgb 12.1 L (13.0-17.5) gm/dL Hct 36.6 L (39.0-53.0) % Neutrophils # 9.9 H (1.3-7.7) k/uL Sodium (137-145) mmol/L Chloride (98-107) mmol/L Glucose (74-99) mg/dL POC Glucose (mg/dL) 171 H (70-110) mg/dL Calcium (8.4-10.2) mg/dL 01/08/23 01/08/23 01/08/23 Range/Units 05:42 05:42 07:26 WBC (3.8-10.6) k/uL RBC 3.96 L (4.30-5.90) m/uL Hgb 12.2 L (13.0-17.5) gm/dL Hct 37.5 L (39.0-53.0) % Neutrophils # (1.3-7.7) k/uL Sodium 135 L (137-145) mmol/L Chloride 110 H (98-107) mmol/L Glucose 120 H (74-99) mg/dL POC Glucose (mg/dL) 158 H (70-110) mg/dL Calcium 7.6 L (8.4-10.2) mg/dL 01/08/23 Range/Units 09:19 WBC (3.8-10.6) k/uL RBC (4.30-5.90) m/uL Hgb (13.0-17.5) gm/dL Hct (39.0-53.0) % Neutrophils # (1.3-7.7) k/uL Sodium (137-145) mmol/L Chloride (98-107) mmol/L Glucose (74-99) mg/dL POC Glucose (mg/dL) 156 H (70-110) mg/dL Calcium (8.4-10.2) mg/dL Assessment and Plan Assessment: 1. Saddle pulmonary embolus with right heart strain status post thrombolysis with EKOS 2. Right lower extremity DVT 3. Diabetes mellitus Plan: 1. Diet as tolerated 2. Discontinue heparin and start Eliquis 10 mg twice a day 3. Because catheters removed, remove sheath after heparin discontinued 4. Increase activity 1-2 hours after sheath removed 5. If patient remains stable and is able to ambulate and oxygen levels improved patient is clear from vascular surgery for discharge once otherwise medically cleared 6. Medical management per primary medical team and critical care team Thank you for this consultation. The impression and plan of care has been dictated as directed. Dr. Loya I performed a history and examination of this patient, discussed the same with the dictator. I agree with the dictator's note ,documented as a scribe. Any additional findings or plans will be noted.
--- NOTE | 2023-01-08 11:06 | P.PN ---
Subjective Progress Note Date: 01/08/23 No new complaints today. HRs better controlled, s/p EKOS yesterday. No dyspnea. No chest pain. Gen: awake, alert HEENT: normocephalic, atraumatic, good hearing acuity, moist mucous membranes Resp: good air exchange, breathing comfortably with no accessory muscle use CVS: good distal perfusion x 4, GI: soft, NTTP, ND : no SPT, no CVAT, more catheter not present MSK: no pitting edema, no clubbing Neuro: non-focal, moving all extremities Psych: cooperative, euthymic mood Hospital Course: 67-year-old male with diabetes mellitus coming in for palpitations and shortness of breath contrast. In the emergency room, patient was afebrile, 152/115, heart rate 121, 95% on 6 L nasal cannula. CBC demonstrated leukocytosis 13.5, otherwise unremarkable. Basic metabolic panel showed potassium of 5.6, CO2 of 19, BUN of 28. Troponin was 0.128 and trended up to 0.16. BNP was 2310. D- dimer was 12.25. EKG showed sinus tachycardia with left axis deviation and pulmonary disease pattern, no evidence of ischemia. Chest x-ray showed normal- sized heart, with some haziness in the right upper lobe. CT angiography of the chest demonstrated saddle pulmonary embolus with large amount of bilateral pulmo nary emboli in the main pulmonary arteries extending into most branches as well as evidence of right heart strain, also redemonstrated patchy airspace disease in the posterior right upper lobe. Venous Doppler ultrasound showed a deep vein thrombosis in the proximal calf veins of the right side. Case was discussed in the emergency room provider and incision was made to make the patient to [facility] for further management of pulmonary embolism. Vascular surgery was consulted and recommended thrombectomy, which was completed on 01/07. Assessment/plan: Acute hypoxic respiratory failure Acute saddle pulmonary embolism with large amount bilateral pulmonary emboli in the main pulmonary arteries extending into most branches with RV strain as shown -Vitals, lab work had been reviewed and noted in the hospital course above. Documentation of operative note, pulmonology note has been reviewed. -Vascular surgery for EKOS completed on 01/07 -Monitor vital signs -Heparin drip and transitioned to Apixiban following completion of thrombectomy Chronic conditions Diabetes mellitus Insulin sliding scale Full code DVT prophylaxis on Apixiban Objective - Vital Signs Vital signs: Vital Signs Temp 98.4 F 01/08/23 08:00 Pulse 77 01/08/23 10:30 Resp 20 01/08/23 10:30 BP 114/76 01/08/23 10:30 Pulse Ox 93 L 01/08/23 10:30 FiO2 21 01/08/23 10:19 Intake & Output 01/07/23 01/08/23 01/08/23 18:59 06:59 18:59 Intake Total 1775 1430 650 Output Total 245 440 205 Balance 1530 990 445 Weight 100.2 kg Intake: IV 1775 1430 650 Sodium Chloride 0.9% 1, 1663 660 580 000 ml @ 130 mls/hr IV . Q7H42M [facility] Rx#:[id number] Sodium Chloride 0.9% 1, 385 35 000 ml @ 35 mls/hr IV . Q24H [facility] Rx#:[id number] Sodium Chloride 0.9% 1, 385 35 000 ml @ 35 mls/hr IV . Q24H [facility] Rx#:[id number] Output: Urine 245 440 205 Other: Voiding Method Indwelling Catheter Indwelling Catheter - Labs CBC & Chem 7: 01/08/23 05:42 01/08/23 05:42 Labs: Abnormal Lab Results - Last 24 Hours (Table) 01/07/23 01/07/23 01/08/23 Range/Units 18:53 20:07 01:44 WBC 13.5 H (3.8-10.6) k/uL RBC 3.94 L (4.30-5.90) m/uL Hgb 12.1 L (13.0-17.5) gm/dL Hct 36.6 L (39.0-53.0) % Neutrophils # 9.9 H (1.3-7.7) k/uL Sodium (137-145) mmol/L Chloride (98-107) mmol/L Glucose (74-99) mg/dL POC Glucose (mg/dL) 171 H (70-110) mg/dL Calcium (8.4-10.2) mg/dL 01/08/23 01/08/23 01/08/23 Range/Units 05:42 05:42 07:26 WBC (3.8-10.6) k/uL RBC 3.96 L (4.30-5.90) m/uL Hgb 12.2 L (13.0-17.5) gm/dL Hct 37.5 L (39.0-53.0) % Neutrophils # (1.3-7.7) k/uL Sodium 135 L (137-145) mmol/L Chloride 110 H (98-107) mmol/L Glucose 120 H (74-99) mg/dL POC Glucose (mg/dL) 158 H (70-110) mg/dL Calcium 7.6 L (8.4-10.2) mg/dL 01/08/23 Range/Units 09:19 WBC (3.8-10.6) k/uL RBC (4.30-5.90) m/uL Hgb (13.0-17.5) gm/dL Hct (39.0-53.0) % Neutrophils # (1.3-7.7) k/uL Sodium (137-145) mmol/L Chloride (98-107) mmol/L Glucose (74-99) mg/dL POC Glucose (mg/dL) 156 H (70-110) mg/dL Calcium (8.4-10.2) mg/dL
--- NOTE | 2023-01-08 11:17 | P.PN ---
Subjective Progress Note Date: 01/08/23 I am seeing this patient in new consultation today 01/07/2023 for a large saddle pulmonary embolism with right-sided heart strain. Patient is a 67-year-old white male with past medical history significant for diabetes mellitus type 2. Patient presented to emergency room earlier this morning complaining of progressively worsening shortness of breath over the last month. He states that this was preceded by right leg pain and swelling. He did see his primary care provider, Dr. Tang, but was reportedly not directed to the ER at that time. Patient reports back pain localized to a right upper/medial location that started soon after his shortness of breath began. He denies any cough, hemoptysis, fever, chest pain. Chest CTA on arrival shows a large saddle pulmonary embolism extending into most branches. There was CT evidence of right heart strain with an increased RV/LV ratio 2.3 and a enlarged pulmonary artery. There is also a consolidation in the posterior right upper lobe concerning for pulmonary infarct. Troponin was elevated at 0.093. NT proBNP elevated at 2310. Patient is currently sitting up in bed, on 3 L/m nasal cannula, in no distress at rest. He does get severely short of breath with any exertion. Heart rhythm is currently sinus tachycardia on 114 bpm. Blood pressure is normotensive. Heparin is infusing per high intensity protocol at 18 units per kilogram per hour. Echocardiogram is pending. Vascular services has been consulted for possible EKOS. Patient denies any previous episodes of blood clots or pulmonary emboli. Denies any family history of coagulopathy. Denies any recent trauma or surgery. Denies any history of cancer. Denies any recent prolonged travel. His only reported prescribed medication is metformin. CBC on arrival showed a WBC count of 15.9, hemoglobin 15.1, hematocrit 45.3, platelets 319. BMP shows sodium 138, potassium 5.6, chloride 106, serum bicarb 19, BUN 28, creatinine 1.2, glucose 175. Normal saline is infusing at 130 ML's per hour. The patient is going to be admitted to the intensive care unit for closer monitoring. He is, however, hemodynamically stable at this time. Vascular consult has been obtained for possible EKOS. The patient is seen today 01/08/2023 in follow-up in the intensive care unit. He is currently resting comfortably in bed. Awake and alert in no acute distress. Maintaining O2 saturations in the 90s on room air. He did undergo pulmonary thrombolysis with EKOS yesterday. White count 9.0. Hemoglobin 12.2. Platelets 230. Sodium 135. Potassium 4.5. Bicarb 22. BUN 18. Creatinine 0. 96. Glucose 120. He's been initiated on Eliquis. Objective - Vital Signs Vital signs: Vital Signs Temp 98.4 F 01/08/23 08:00 Pulse 77 01/08/23 10:30 Resp 20 01/08/23 10:30 BP 114/76 01/08/23 10:30 Pulse Ox 93 L 01/08/23 10:30 FiO2 21 01/08/23 10:19 Intake & Output 01/07/23 01/08/23 01/08/23 18:59 06:59 18:59 Intake Total 1775 1430 650 Output Total 245 440 205 Balance 1530 990 445 Weight 100.2 kg Intake: IV 1775 1430 650 Sodium Chloride 0.9% 1, 1663 660 580 000 ml @ 130 mls/hr IV . Q7H42M [facility]ARA Rx#:[id number] Sodium Chloride 0.9% 1, 385 35 000 ml @ 35 mls/hr IV . Q24H [facility]ARA Rx#:[id number] Sodium Chloride 0.9% 1, 385 35 000 ml @ 35 mls/hr IV . Q24H [facility]ARA Rx#:[id number] Output: Urine 245 440 205 Other: Voiding Method Indwelling Catheter Indwelling Catheter - Exam GENERAL EXAM: Alert, 67-year-old male, on room air, comfortable in no apparent distress. HEAD: Normocephalic. EYES: Normal reaction of pupils, equal size. NOSE: Clear with pink turbinates. THROAT: No erythema or exudates. NECK: No masses, no JVD. CHEST: No chest wall deformity. LUNGS: Equal air entry with no crackles, wheeze, rhonchi or dullness. CVS: S1 and S2 normal with no audible murmur, regular rhythm. ABDOMEN: No hepatosplenomegaly, normal bowel sounds, no guarding or rigidity. SPINE: No scoliosis or deformity SKIN: No rashes CENTRAL NERVOUS SYSTEM: No focal deficits, tone is normal in all 4 extremities. EXTREMITIES: Groin site stable. There is no peripheral edema. No clubbing, no cyanosis. Peripheral pulses are intact. - Labs CBC & Chem 7: 01/08/23 05:42 01/08/23 05:42 Labs: Abnormal Lab Results - Last 24 Hours (Table) 01/07/23 01/07/23 01/08/23 Range/Units 18:53 20:07 01:44 WBC 13.5 H (3.8-10.6) k/uL RBC 3.94 L (4.30-5.90) m/uL Hgb 12.1 L (13.0-17.5) gm/dL Hct 36.6 L (39.0-53.0) % Neutrophils # 9.9 H (1.3-7.7) k/uL Sodium (137-145) mmol/L Chloride (98-107) mmol/L Glucose (74-99) mg/dL POC Glucose (mg/dL) 171 H (70-110) mg/dL Calcium (8.4-10.2) mg/dL 01/08/23 01/08/23 01/08/23 Range/Units 05:42 05:42 07:26 WBC (3.8-10.6) k/uL RBC 3.96 L (4.30-5.90) m/uL Hgb 12.2 L (13.0-17.5) gm/dL Hct 37.5 L (39.0-53.0) % Neutrophils # (1.3-7.7) k/uL Sodium 135 L (137-145) mmol/L Chloride 110 H (98-107) mmol/L Glucose 120 H (74-99) mg/dL POC Glucose (mg/dL) 158 H (70-110) mg/dL Calcium 7.6 L (8.4-10.2) mg/dL 01/08/23 Range/Units 09:19 WBC (3.8-10.6) k/uL RBC (4.30-5.90) m/uL Hgb (13.0-17.5) gm/dL Hct (39.0-53.0) % Neutrophils # (1.3-7.7) k/uL Sodium (137-145) mmol/L Chloride (98-107) mmol/L Glucose (74-99) mg/dL POC Glucose (mg/dL) 156 H (70-110) mg/dL Calcium (8.4-10.2) mg/dL Assessment and Plan Assessment: Large saddle pulmonary embolism extending into most pulmonary branches with CT evidence of right-sided heart strain. There was also evidence of wedge shaped consolidation in the posterior right upper lobe consistent with Malik hump sign concerning for pulmonary infarct. Troponins elevated at 0.093. NT proBNP elevated at 2300. Echocardiogram is pending. The patient did undergo EKOS yesterday 01/07/2023. Initiated on Eliquis Acute hypoxemic respiratory failure, secondary to above, recovered and currently on room air Leukocytosis, likely reactive to PE, normalized Diabetes mellitus type 2, [id number] Obesity, BMI of 30.8 kg/m Plan: The patient was seen and evaluated Currently stable and on room air Labs and medications reviewed Initiated on Eliquis Home once cleared by vascular surgery I have personally seen and examined the patient, performed the documentation and the assessment and plan as written. Number of minutes spent on the visit: 10.
[2023-01-08 11:51] LABS: Glucose,Whole Blood 108 mg/dL (70-110)
--- NOTE | 2023-01-08 12:54 | CA ---
Transthoracic Echo Report Name: Cleveland Dai Age: 67 Gender: M : 1955 Exam Date: 01/07/2023 09:00 Exam Location: [facility] Ht (in): 70 Wt (lb): 215 Ordering Physician: Stephen Lacey DO Attending/Referring Phys: [id number], Abhijit Sales Floor Associate Rex Wang Procedure CPT: Indications: PE Cardiac Hx: Technical Quality: Technically difficult study Contrast 1: Total Dose (mL): Contrast 2: Total Dose (mL): MEASUREMENTS (Male / Female) Normal Values 2D ECHO LV Diastolic Diameter PLAX 3.3 cm 4.2 - 5.9 / 3.9 - 5.3 cm LV Systolic Diameter PLAX 2.8 cm IVS Diastolic Thickness 1.3 cm 0.6 - 1.0 / 0.6 - 0.9 cm LVPW Diastolic Thickness 1.3 cm 0.6 - 1.0 / 0.6 - 0.9 cm LV Relative Wall Thickness 0.8 RV Internal Dim ED PLAX 3.8 cm LVOT Diameter 2.2 cm Aortic Root Diameter 3.3 cm LA Systolic Diameter LX 1.6 cm 3.0 - 4.0 / 2.7 - 3.8 cm LV Diastolic Volume MOD BP 26.6 cm??? 67 - 155 / 56 - 104 cm??? LV Systolic Volume MOD BP 8.7 cm??? 22 - 58 / 19 - 49 cm??? LV Ejection Fraction MOD BP 67.1 % >= 55 % LV Cardiac Index MOD BP 802.2 cm???/min???m??? LV Diastolic Volume MOD 4C 20.4 cm??? LV Systolic Volume MOD 4C 6.5 cm??? LV Ejection Fraction MOD 4C 68.2 % LV Cardiac Index MOD 4C 628.0 cm???/min???m??? LV Diastolic Length 4C 6.9 cm LV Systolic Length 4C 5.9 cm LV Diastolic Volume MOD 2C 33.6 cm??? LV Systolic Volume MOD 2C 11.8 cm??? LV Ejection Fraction MOD 2C 64.9 % LV Cardiac Index MOD 2C 981.8 cm???/min???m??? LV Diastolic Length 2C 6.6 cm LV Systolic Length 2C 5.8 cm LA Volume 27.9 cm??? 18 - 58 / 22 - 52 cm??? DOPPLER AV Peak Velocity 104.0 cm/s AV Peak Gradient 4.3 mmHg LVOT Peak Velocity 92.4 cm/s LVOT Peak Gradient 3.4 mmHg AV Area Cont Eq pk 3.4 cm??? MV Peak Velocity 90.0 cm/s MV Peak Gradient 3.2 mmHg MV Mean Velocity 38.4 cm/s MV Mean Gradient 0.8 mmHg MV Velocity Time Integral 21.7 cm Mitral E Point Velocity 37.4 cm/s Mitral A Point Velocity 86.1 cm/s Mitral E to A Ratio 0.4 MV Deceleration Time 174.0 ms PV Peak Velocity 52.3 cm/s PV Peak Gradient 1.1 mmHg FINDINGS Left Ventricle Normal LV size . Mild LVH. Left ventricular ejection fraction is estimated at 55-60%. No obvious regional wall motion abnormality. Right Ventricle Severe right ventricular dilatation. Signs of right ventricular pressure overload and volume overload with septal shudder. RVSP could not be estimated. Right Atrium Mild right atrial dilatation. Left Atrium Normal left atrial size. LA volume index= 13ml/m2 Mitral Valve Structurally normal mitral valve. No mitral regurgitation. Aortic Valve Trileaflet aortic valve. No aortic valve stenosis or regurgitation. Tricuspid Valve Tricuspid valve not well visualized. Trace TR. Pulmonic Valve Pulmonic valve not well visualized. No pulmonic regurgitation. Pericardium No pericardial effusion. Prominent Epicardial fat seen. Aorta Normal size aortic root. CONCLUSIONS Technically difficult study. Mild concentric LVH. LVEF estimated at 55-60% in slow No obvious regional wall motion abnormality Severe right ventricular dilatation with signs of right ventricular pressure and volume overload No obvious valvular pathology appreciated No prior echo to compare with Previewed by: Dr Kirill Louis (Electronically Signed) Final Date: 08 January 2023 12:53
[2023-01-08 16:28] LABS: Glucose,Whole Blood 160 mg/dL (70-110)
[2023-01-08 17:12] VITALS: RESP 23
--- NOTE | 2023-01-08 17:18 | P.DS ---
Providers Date of admission: 01/07/23 04:10 Expected date of discharge: 01/08/23 Attending physician: Baron Alexander MD Consults: 01/07/23 04:10 Consult Physician Routine Consulting Provider: Maycol Soto Consult Reason/Comments: pe Do you want consulting provider notified?: Yes Consult Physician Routine Consulting Provider: Sarah More Consult Reason/Comments: PE Do you want consulting provider notified?: Yes Primary care physician: Chuck Tang Hospital Course: Acute hypoxic respiratory failure Acute saddle pulmonary embolism with large amount bilateral pulmonary emboli in the main pulmonary arteries extending into most branches with RV strain as shown Diabetes mellitus Hospital Course: 67-year-old male with diabetes mellitus coming in for palpitations and shortness of breath contrast. In the emergency room, patient was afebrile, 152/115, heart rate 121, 95% on 6 L nasal cannula. CBC demonstrated leukocytosis 13.5, otherwise unremarkable. Basic metabolic panel showed potassium of 5.6, CO2 of 19, BUN of 28. Troponin was 0.128 and trended up to 0.16. BNP was 2310. D- dimer was 12.25. EKG showed sinus tachycardia with left axis deviation and pulmonary disease pattern, no evidence of ischemia. Chest x-ray showed normal- sized heart, with some haziness in the right upper lobe. CT angiography of the chest demonstrated saddle pulmonary embolus with large amount of bilateral pulmonary emboli in the main pulmonary arteries extending into most branches as well as evidence of right heart strain, also redemonstrated patchy airspace disease in the posterior right upper lobe. Venous Doppler ultrasound showed a deep vein thrombosis in the proximal calf veins of the right side. Case was discussed in the emergency room provider and incision was made to make the patient to hospital for further management of pulmonary embolism. Vascular surgery was consulted and recommended thrombectomy, which was completed on 01/07. Patient was successfully transitioned to apixaban following thrombectomy and was discharged home with PCP f/u. I spent 34 minutes coordinating this discharge on 01/08 Gen: awake, alert HEENT: normocephalic, atraumatic, good hearing acuity, moist mucous membranes Resp: good air exchange, breathing comfortably with no accessory muscle use CVS: good distal perfusion x 4, GI: soft, NTTP, ND : no SPT, no CVAT, more catheter not present MSK: no pitting edema, no clubbing Neuro: non-focal, moving all extremities Psych: cooperative, euthymic mood \ Patient Condition at Discharge: Good Plan - Discharge Summary Discharge Rx Participant: Yes New Discharge Prescriptions: New Apixaban [Eliquis Starter Pack (for VTE)] 5 - 10 mg PO DIRECTED 30 Days #1 each Continue metFORMIN HCL ER [Glucophage XR] 1,000 mg PO BID Discharge Medication List metFORMIN HCL ER [Glucophage XR] 1,000 mg PO BID 01/07/23 [History] Apixaban [Eliquis Starter Pack (for VTE)] 5 - 10 mg PO DIRECTED 30 Days #1 each 01/08/23 [Rx] Follow up Appointment(s)/Referral(s): Chuck Tang MD [Primary Care Provider] - 1-2 days Sarah More DO [STAFF PHYSICIAN] - 1 Week Discharge Disposition: HOME SELF-CARE
[2023-01-08 18:29] VITALS: BP 135/87; PULSE 93; TEMP 98.1
== END 2023-01-08 18:45 | disposition home or self-care (01) | DRG 166 ==
LOC: EC 01:33 → 3SCARD 04:10 → 2SICU 05:11
PROVIDERS: ADMIT Internal Medicine; ATTEND Internal Medicine
PROC: 02FR3Z0 Fragmentation of Left Pulmonary Artery, Percutaneous Approach, Ultrasonic (ICD-10-PCS; 2023-01-07)
PROC: B31T1ZZ Fluoroscopy of Left Pulmonary Artery using Low Osmolar Contrast (ICD-10-PCS; 2023-01-07)
PROC: B31S1ZZ Fluoroscopy of Right Pulmonary Artery using Low Osmolar Contrast (ICD-10-PCS; 2023-01-07)
PROC: 02FQ3Z0 Fragmentation of Right Pulmonary Artery, Percutaneous Approach, Ultrasonic (ICD-10-PCS; principal; 2023-01-07 07:30)
DX: I26.92 Saddle embolus of pulmonary artery without acute cor pulmonale (principal); J96.01 Acute respiratory failure with hypoxia; E66.9 Obesity, unspecified; Z68.30 Body mass index [BMI] 30.0-30.9, adult; E87.5 Hyperkalemia; E11.9 Type 2 diabetes mellitus without complications; R77.8 Other specified abnormalities of plasma proteins; Z28.310 Unvaccinated for COVID-19; Z28.21 Immunization not carried out because of patient refusal
CPT/HCPCS: 36415; 37211; 71045; 71275; 80048; 80053; 83036; 83735; 83880; 84100; 84484; 85025; 85379; 85384; 85610; 85730; 87040; 93005; 93306; 96361; 96365; 96368; 99291

== ENCOUNTER → 2023-04-07 | Outpatient (CLI) | payer MEDICARE ==
[2023-04-07 15:31] LABS: BUN/Creat Ratio 14.91 Ratio (12.00-20.00); Blood Urea Nitrogen 16.4 mg/dL (9.0-27.0); Calcium 9.7 mg/dL (8.7-10.3); Carbon Dioxide 28.4 mmol/L (21.6-31.8); Chloride 101 mmol/L (96-109); Glucose 102 mg/dL (70-110); Potassium 4.7 mmol/L (3.5-5.5); Sodium 140 mmol/L (135-145)
[2023-04-07 15:40] LABS: Basophils # (A) 0.02 X 10*3/uL (0.00-0.10); Basophils % (A) 0.2 %; Eosinophils # (A) 0.15 X 10*3/uL (0.04-0.35); Eosinophils % (A) 1.8 %; HCT 42.4 % (39.6-50.0); HGB 14.1 g/dL (13.0-17.0); Lymphocytes # (A) 2.59 X 10*3/uL (0.90-5.00); Lymphocytes % (A) 31.1 %; MCH 30.1 pg (27.0-32.0); MCHC 33.3 g/dL (32.0-37.0); MCV 90.6 FL (80.0-97.0); Mean Platelet Volume 9.4 FL (9.5-12.2); NRBC Per 100 WBC 0 X 10*3/uL (0.00-0.01); Neutrophils # (A) 5.04 X 10*3/uL (1.80-7.70); Neutrophils % (A) 60.7 %; Platelet Count 246 X 10*3/uL (140-440); RBC 4.68 X 10*6/uL (4.40-5.60); RDW 13.3 % (11.5-14.5); WBC 8.32 X 10*3/uL (4.50-10.00)
[2023-04-07 16:45] LABS: Appearance,Urine Clear (Clear); Bilirubin,Urine Negative (Negative); Blood,Urine Large (Negative); Color,Urine Yellow (Yellow); Ketones,Urine Negative (Negative); Nitrite,Urine Negative (Negative); Specific Gravity,Urine 1.018 (1.001-1.030); Urobilinogen,Urine 0.2 E.U./DL
[2023-04-07 18:25] LABS: Bacteria,Urine None Seen (None Seen); Calcium Oxalate Crystals,Urine Present (None Seen)
== END | disposition home or self-care (01) ==
LOC: LABPAT 09:16
PROVIDERS: ATTEND Urology
DX: Z01.812 Encounter for preprocedural laboratory examination (principal); N20.0 Calculus of kidney; R31.29 Other microscopic hematuria
CPT/HCPCS: 80048; 81001; 85025; 87086

== ENCOUNTER 2023-04-14 08:03 | Day surgery (SDC) | payer MEDICARE ==
[2023-04-09 15:04] VITALS: BMI 30.8
--- NOTE | 2023-04-13 18:57 | P.GSHP ---
History of Present Illness H&P Date: 04/13/23 67 yo male with a painful 1 cm right renal pelvic stones on anticoagulation who comes for a right ureteroscopy with laser lithotripsy. He cannot come off his anticoagulation because of a pe in january andtherefore is not a candidate for eswl or pcnl.. the risks and complications have been discussed including recurrence of his PE have been explained understood and accepted - Constitutional Constitutional: Denies chills, Denies fever - EENT Eyes: denies blurred vision, denies pain Ears, nose, mouth and throat: Denies headache, Denies sore throat - Cardiovascular Cardiovascular: Denies chest pain, Denies shortness of breath - Respiratory Respiratory: Denies cough, Denies 7 - Gastrointestinal Gastrointestinal: Denies abdominal pain, Denies diarrhea, Denies nausea, Denies vomiting - Genitourinary (Female) Genitourinary: Denies dysuria, Denies hematuria - Genitourinary (Male) Genitourinary: Denies dysuria, Denies hematuria - Musculoskeletal Musculoskeletal: Denies myalgias - Integumentary Integumentary: Denies pruritus, Denies rash - Neurological Neurological: Denies numbness, Denies weakness - Psychiatric Psychiatric: Denies anxiety, Denies depression - Endocrine Endocrine: Denies fatigue, Denies weight change Past Medical History Past Medical History: Diabetes Mellitus, Hyperlipidemia, Osteoarthritis (OA), Pulmonary Embolus (PE) Additional Past Medical History / Comment(s): 01/07/23 hospitalized for large saddle PE with right heart strain- EKOS procedure was done., hx kidney stones History of Any Multi-Drug Resistant Organisms: None Reported Past Surgical History: Orthopedic Surgery Additional Past Surgical History / Comment(s): meniscus repair right knee, left shoulder surgery , right cataract., EKOS procedure for saddle PE 01/07/23. Past Anesthesia/Blood Transfusion Reactions: No Reported Reaction Past Psychological History: No Psychological Hx Reported Smoking Status: Former smoker Past Alcohol Use History: None Reported Additional Past Alcohol Use History / Comment(s): quit smoking age 35, smoked less than a ppd. Past Drug Use History: None Reported Medications and Allergies Home Medications Medication Instructions Recorded Confirmed Type metFORMIN HCL ER [Glucophage XR] 1,000 mg PO BID 01/07/23 04/09/23 History Apixaban [Eliquis Starter Pack 5 mg PO BID 04/09/23 04/09/23 History (for VTE)] Simvastatin [Zocor] 40 mg PO HS 04/09/23 04/09/23 History Allergies Allergy/AdvReac Type Severity Reaction Status Date / Time latex Allergy Itching, Verified 04/09/23 14:46 red skin Surgical - Exam - General well developed, well nourished, no distress - Eyes normal ocular movement, no icteric - ENT no hearing loss, no congestion - Neck no masses, trachea midline - Respiratory normal respiratory effort, clear to auscultation - Abdomen Abdomen: soft, non tender, no guarding, no rigid, no rebound - Integumentary no rash, no abnormal pigmentation - Neurologic no disoriented, no combative - Psychiatric oriented to time, oriented to person, oriented to place, speech is normal, memory intact Results - Imaging CT scan - abdomen: report reviewed, image reviewed CT scan - pelvis: report reviewed, image reviewed US - abdomen: image reviewed Assessment and Plan Assessment: Impression: right renal calculous Plan; right ureteroscopy with laser lithotripsy, possible stent.
[~2023-04-14 08:03] MED LIST: DEXAMETHASONE SOD PHOSPHATE 4 MG/ML 1 ML VIAL IV ONE; HYDROmorphone 0.5 MG/0.5 ML SYRINGE IVP PRN; LACTATED RINGERS 1,000 ML IV SCH; LIDOCAINE 1% (10MG/ML) FOR IV START INTRADERMA PRN; MIDAZOLAM 2 MG/2 ML VIAL IV PRN; ONDANSETRON 4 MG/2 ML VIAL IVP ONE
[2023-04-14 09:00] LABS: Glucose,Whole Blood 132 mg/dL (70-110)
--- NOTE | 2023-04-14 09:02 | XR ---
EXAMINATION TYPE: XR KUB DATE OF EXAM: 04/14/2023 COMPARISON: CT 02/15/2023 INDICATION: Renal stones TECHNIQUE: Single view abdomen supine view FINDINGS: There is a normal bowel gas pattern. Psoas margins are normal. No organomegaly is present. There is a 1.6 cm oval density to the right of the L1-2 disc level may be within the right proximal u reter. No additional suspicious calcifications evident. IMPRESSION: 1. 1.6 cm right ureteral calcification.
[2023-04-14] MEDS ORDERED: DEXAMETHASONE SOD PHOSPHATE 4 MG/ML 1 ML VIAL IVP ONE (09:20)
[2023-04-14] MEDS ORDERED: ONDANSETRON 4 MG/2 ML VIAL IVP ONE (09:21)
[2023-04-14] MEDS ORDERED: MIDAZOLAM 2 MG/2 ML VIAL ONE (09:23)
[2023-04-14] MEDS ORDERED: LIDOCAINE 1% INJ 10MG/ML (20 ML MDV) ONE (09:23)
[2023-04-14] MEDS ORDERED: fentaNYL (PF) 50 MCG/ML 2 ML AMP ONE (09:23)
[2023-04-14] MEDS ORDERED: PROPOFOL 10 MG/ML 20 ML VIAL IV ONE (09:23)
--- NOTE | 2023-04-14 11:03 | P.OP ---
Date of Procedure: 04/14/23 Preoperative Diagnosis: Right ureteral calculus large Postoperative Diagnosis: Same Procedure(s) Performed: cystoscopy, right ureteroscopy with laser lithotripsy, placement of 626 stent Anesthesia: TABITHAA Surgeon: Gerardo Harden Estimated Blood Loss (ml): 10 Pathology: other Condition: stable (Stone) Disposition: PACU Indications for Procedure: Patient is 67. He has a 16 mm UPJ stone. He is on anticoagulation because of pulmonary embolus in January. He is having pain. He comes for a right ureteroscopy with laser lithotripsy Description of Procedure: Patient brought to the operating suite. Placed on the operating table in a supine position. Placed lithotomy position with a sterile prep and drape. Cystoscopy Foroblique lens and 21-Urdu sheath identifies a trilobar obstructing prostate. The bladder wall shows moderate trabeculation. There is no tumor seen. The right ureteral orifice is identified and intubated with an 035 wire passed up into the kidney. Over the wires passed 31-93-Aimiea reentry sheath. The inner sheath is removed from the right ureter and then I passed the flexible ureteroscope up the right ureter or identify a trabeculated jagged large UPJ stone impacted 275 laser probe the stone is broken into very tiny fragments and flushed out of the ureter. Eventually the stone was broken such that I passed into the UPJ. I basket the largest fragments. Then of the procedure I looked throughout the collecting system and see no remaining stone. Do a pullout ureteroscopy there is no remaining stone. I reintroduced the cystoscope into the bladder and pass an 035 wire up into the kidney. Over the wires passed a 6 x 26 double-J catheter that coils in the right renal pelvis and the bladder. The bladder strain the patient's awake and returned recovery room good condition. He'll be discharged home upon recovery. The stent will remain in 2-3 weeks.
[2023-04-14 11:04] LABS: Glucose,Whole Blood 107 mg/dL (70-110)
[2023-04-14 11:05] VITALS: TEMP 97.2
[2023-04-14] MEDS ORDERED: LACTATED RINGERS 1,000 ML IV ONE ×2 (11:51→12:27)
[2023-04-14 12:22] VITALS: BP 154/92; PULSE 77; RESP 20
--- NOTE | 2023-04-14 19:52 | FL ---
Fluoroscopy INDICATION: Pain FINDINGS: Fluoroscopy time: 17 seconds. Total dose area product (DAP) in uGy*m?, mGy*cm? (or similar): 2.7923 Images obtained: 5. IMPRESSION: 1. Documentation of fluoroscopy.
== END 2023-04-14 12:40 | disposition home or self-care (01) ==
LOC: OR 08:03
PROVIDERS: ATTEND Urology
DX: N20.1 Calculus of ureter (principal); E11.9 Type 2 diabetes mellitus without complications; E78.5 Hyperlipidemia, unspecified; M19.90 Unspecified osteoarthritis, unspecified site; Z86.711 Personal history of pulmonary embolism; Z87.442 Personal history of urinary calculi; Z98.890 Other specified postprocedural states; Z87.891 Personal history of nicotine dependence; Z79.01 Long term (current) use of anticoagulants; Z79.84 Long term (current) use of oral hypoglycemic drugs; Z91.040 Latex allergy status; Z79.899 Other long term (current) drug therapy
CPT/HCPCS: 82365; 74018; 52356; C2625; C1769; J2250; J1100; J0690; J2405; J2001; J3010; J2704

== ENCOUNTER → 2023-08-30 | Outpatient (CLI) | payer MEDICARE ==
--- NOTE | 2023-08-30 08:59 | US ---
EXAMINATION TYPE: US liver DATE OF EXAM: 08/30/2023 COMPARISON: CT 01/07/2023 02/15/2023. CLINICAL INDICATION: Male, 68 years old with history of R94.5 ABNORMAL RESULTS OF LIVER FUNCTION STUD IES; Hx renal stones with lithotripsy; Patient on blood thinners TECHNIQUE: Multiple sonographic images of the right upper quadrant are obtained. FINDINGS: EXAM MEASUREMENTS: Liver Length: 15.8 cm Gallbladder Wall: 0.1 cm CBD: 0.2 cm Right Kidney: 10.3 x 5.8 x 5.5 cm BRUSH CUTTER NOTES: Pancreas: wnl Liver: Discrete, illdefined, echogenic area adjacent to GB in right liver lobe = 2.7 x 1.4 x 1.6 cm which is seen dating back to at least 01/07/2023. Gallbladder: wnl Evidence for sonographic Dominguez's sign: No CBD: wnl Right Kidney: wnl IMPRESSION: Lesion within the liver near the gallbladder fossa favored to represent focal fatty infiltration give n findings on prior exam with background of hepatic steatosis.. This can be confirmed with MRI liver mass protocol.
== END | disposition home or self-care (01) ==
LOC: RADUSWWP 07:31
PROVIDERS: ATTEND Family Medicine
DX: K76.89 Other specified diseases of liver (principal); R94.5 Abnormal results of liver function studies; Z79.01 Long term (current) use of anticoagulants; Z87.442 Personal history of urinary calculi
CPT/HCPCS: 76705

== ENCOUNTER → 2023-09-01 | Outpatient (CLI) | payer MEDICARE ==
[2023-09-01 12:59] LABS: African American GFR (CKD) 80 (>60 ml/min/1.73 sqM); Blood Urea Nitrogen 17 mg/dL (9-20); Non-African American GFR(CKD) 69 (>60 ml/min/1.73 sqM)
--- NOTE | 2023-09-01 14:05 | CT ---
CTA CHEST EXAMINATION TYPE: CT angio chest DATE OF EXAM: 09/01/2023 INDICATION: SOB, hx of PE CT DLP: 544 mGycm, Automated exposure control for dose reduction was used. CONTRAST: Patient injected with 100 ml mL of Isovue 370. COMPARISON: 01/07/2023 TECHNIQUE: CT of the chest is performed on a spiral scan at 2 mm thick sections. Study is performed with intravenous contrast timed for evaluation for pulmonary embolism. This will limit additional po rtions of the evaluation. 3-D MIP images reconstructed by the technologist are reviewed on the compu ter in the coronal and sagittal planes. FINDINGS: No persistent filling defects are evident to suggest an acute pulmonary embolism. No mediastinal or hilar adenopathy enlarged by CT criteria is evident. The ascending aorta diameter at the level of the main pulmonary artery is 3.2 cm. The main pulmonary artery diameter at the bifurcation is 3.0 cm. Minimal infiltrate is in the right upper lung field. Example image [id number], image 45. Limited CT sections were through the upper abdomen. Upper abdomen appears unremarkable. IMPRESSION: 1. No suspicious pulmonary embolism. 2. Minimal infiltrate may be within the right upper lung field and lung windows. Follow-up can be per formed as clinically indicated.
== END | disposition home or self-care (01) ==
LOC: RADCTMAIN 12:06
PROVIDERS: ATTEND Internal Medicine Hematology & Oncology
DX: I26.99 Other pulmonary embolism without acute cor pulmonale (principal); R91.8 Other nonspecific abnormal finding of lung field; D68.59 Other primary thrombophilia; I82.491 Acute embolism and thrombosis of other specified deep vein of right lower extremity; E11.9 Type 2 diabetes mellitus without complications
CPT/HCPCS: 82565; 84520; 71275; 36415; Q9967

== ENCOUNTER → 2023-09-18 | Outpatient (CLI) | payer MEDICARE ==
--- NOTE | 2023-09-18 15:18 | MR ---
EXAMINATION TYPE: MR abdomen wo/w con DATE OF EXAM: 09/18/2023 12:57 PM CLINICAL INDICATION:Male, 68 years old with history of R16.0 HEPATOMEGALY; PHH, Hepatomegaly, cyst on liver COMPARISON: Ultrasound 08/30/2023 TECHNIQUE: Multiplanar multi-sequence imaging was performed without contrast. Post contrast imaging was performed. Post IV contrast subtraction images were also submitted for review. IV Contrast: 9.5 cc Gadavist FINDINGS: LOWER CHEST: No gross irregularity. ABDOMEN Liver: No evidence for hepatic steatosis or cirrhosis. There is focal fatty infiltration with signal dropout on in the gallbladder fossa shift chemical shift out of phase imaging image 68. Gallbladder and Bile ducts: No evidence for ductal dilation, or biliary stricture or evidence of chol edocholithiasis. The gallbladder is within normal limits. Pancreas: No ductal dilation. No evidence for solid mass. Spleen: Normal for size. Adrenal glands: Unremarkable. Kidneys: No evidence for obstructive uropathy. No suspicious renal masses. Peripelvic bilateral renal cysts left greater than right. Stomach and Bowel: No evidence for bowel wall thickening or evidence for obstruction. Scattered colon ic diverticula present. The appendix is normal. Retroperitoneum/Peritoneum: No evidence of pneumoperitoneum or free fluid. Vasculature: No aortic aneurysm. Musculoskeletal: The osseous structures appear intact. Lymph Nodes: No gross evidence for lymphadenopathy. Abdominal wall: Unremarkable. IMPRESSION: No suspicious liver lesions. Area of concern is confirmed to be focal fatty infiltration. No acute ab dominal process.
== END | disposition home or self-care (01) ==
LOC: RADMRIMAIN 11:31
PROVIDERS: ATTEND Family Medicine
DX: K76.0 Fatty (change of) liver, not elsewhere classified (principal); K76.89 Other specified diseases of liver; R16.0 Hepatomegaly, not elsewhere classified
CPT/HCPCS: 74183; A9585

== ENCOUNTER 2023-11-10 07:13 | Day surgery (SDC) | payer MEDICARE, OTHER ==
[~2023-11-10 07:13] MED LIST changes: -DEXAMETHASONE SOD PHOSPHATE 4 MG/ML 1 ML VIAL IV ONE; -HYDROmorphone 0.5 MG/0.5 ML SYRINGE IVP PRN; -LACTATED RINGERS 1,000 ML IV SCH; -LIDOCAINE 1% (10MG/ML) FOR IV START INTRADERMA PRN; -MIDAZOLAM 2 MG/2 ML VIAL IV PRN; -ONDANSETRON 4 MG/2 ML VIAL IVP ONE; +TETRACAINE 0.5% OPHTH (PF) DROPS 4 ML BTL OP PRN
[2023-11-10] MEDS: IV FLUID CONTINUATION 1,000 ML IV ONE (07:45)
[2023-11-10] MEDS: PHENYLEPHRINE 2.5% OPHTH DRP 2ML OP PRN (07:59)
[2023-11-10] MEDS: LACTATED RINGERS 1,000 ML IV SCH (07:59)
[2023-11-10 08:02] LABS: Glucose,Whole Blood 115 mg/dL (70-110)
[2023-11-10] MEDS: CYCLOPENTOLATE 1% OPHTH SOLN 2 ML BTL OP PRN (08:02)
[2023-11-10 08:04] VITALS: TEMP 97.2
[2023-11-10] MEDS ORDERED: MIDAZOLAM 2 MG/2 ML VIAL ONE (09:08)
[2023-11-10] MEDS ORDERED: fentaNYL (PF) 50 MCG/ML 2 ML AMP ONE (09:08)
[2023-11-10] MEDS ORDERED: TRIAMCINOLONE ACETONIDE 40 MG/ML 1 ML VIAL IM ONE (09:15)
[2023-11-10] MEDS: TRIAMCINOLONE ACETONIDE 40 MG/ML 1 ML VIAL IM ONE ×2 (09:26→09:30)
[2023-11-10] MEDS: TIMOLOL 0.5% OPHTH DROPS 5 ML BTL OP PRN (09:31)
[2023-11-10] MEDS: HYALURONATE SODIUM INTRAOCULAR 1 EACH SYRINGE (12MG/ML) INTRAOCULA ONE (09:31)
[2023-11-10] MEDS: MOXIFLOXACIN HCL 0.5% DROPS 3 ML BTL OP PRN (09:31)
[2023-11-10] MEDS: LIDOCAINE 1% (PF) 10MG/ML VIAL MISCELLANE ONE (09:32)
[2023-11-10] MEDS: BALANCED SALT IRRIG SOLN COMB2 15 ML IRRIG.SOLN INTRAOCULA ONE (09:32)
[2023-11-10] MEDS: EPINEPHrine (PF) 0.3 ML in BALANCED SALT IRRIG SOLN COMB2 500 ML IRRIGATION ONE (09:33)
--- NOTE | 2023-11-10 10:07 | P.OP ---
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
[2023-11-10 10:32] VITALS: BP 115/76; PULSE 63; RESP 18
--- NOTE | 2023-11-11 10:30 | OP ---
OPERATIVE REPORT DATE OF SERVICE : 11/10/2023 PROCEDURE: Intraocular lens exchange of the right eye. PREOPERATIVE DIAGNOSES: Uveitis glaucoma, hyphema syndrome. POSTOPERATIVE DIAGNOSES: Uveitis glaucoma, hyphema syndrome. ANESTHESIA: Topical. ESTIMATED BLOOD LOSS: None. SPECIMEN TAKEN: Previously implanted one-piece acrylic intraocular lens from the right eye. HISTORY: This is a patient who underwent cataract operation approximately a year and a quarter ago in a different facility, who had continued to experience significant discomfort as well as increased intra-ocular pressures from the eye following the cataract operation, the original cataract operation was complicated with a dropped nucleus requiring vitrectomy and apparently sulcus fixation of a standard one-piece acrylic eye well into the ciliary sulcus. The ongoing inflammation was probably related to chronic irritation of the iris due to chafing with the broad one-piece acrylic haptics. Therefore, the decision was to swap the intraocular lens with perhaps a slightly different lens to relieve him of his symptoms. Therefore, the patient returned today for that exchange. After obtaining the appropriate consent, the patient was brought to the operating room. There, he was placed under cardiac monitoring, prepped and draped in the usual sterile manner. He was approached from his right temporal side and at the 11 o'clock position an MVR blade was used to create a paracentesis port. Through this opening, 1% Xylocaine MPF 50:50 mix of balanced salt solution was injected into the anterior chamber. This was followed by stabilization of the anterior chamber with Amvisc and at the temporal incision, a 2.75 mm keratome was used to redilate the original surgical path gaining access to the anterior chamber. A Sinskey hook was placed on the intraocular lens and the lens was noted to be extremely loose within the anterior chamber. Haptics were aligned with previously noted transillumination defects of the iris. Therefore, the decision was to explant the intraocular lens and under additional viscoelastic, the lens was rotated above the iris without any difficulty, without any residual scar tissue noted to either of the 2 haptics from the peripheral placement of that lens within the sulcus. Once the lens was brought into the anterior chamber, a cyclodialysis spatula was used to protect the cornea as well as facilitate rolling of the intraocular lens, which had the trailing haptic advanced through the temporal incision and using straight tires, the lens was rotated and removed through the temporal incision without further manipulation of the incision or having to cut the intraocular lens. Standard Kenalog steroid was manually washed with balanced salt solution and a filter 3 times and a small amount of this steroid was then placed into the anterior chamber to identify for any residual stray vitreous, which may have been incompletely removed during the original vitrectomy. There was none identified and therefore, irrigation and aspiration was used to remove a large quantity of the steroid medication except that which had found its way through the capsular rent into the posterior chamber. Amvisc was then used to stabilize the anterior chamber once more, and a Bausch [employer] Lomb LI61AO 16.5 diopter posterior chamber intraocular lens was then inserted into the anterior chamber of the eye using a Sinskey hook. Careful placement of the haptics into the ciliary sulcus was accomplished. As the capsular rent appeared reasonably central, it was decided to capture the optic of the lens with the anterior capsule of the remaining lens bag. Once this was accomplished, the intraocular lens centered well. There was no additional movement noted at that particular time, and the remaining viscoelastic from the anterior chamber was removed under gentle irrigation and aspiration. As Miochol was unavailable, the patient then received 2 drops of 2% pilocarpine at the end of the case to bring about pupillary miosis. Once the ocular wounds were secured with balanced salt solution and confirmed watertight, he also received 2 drops of 0.5% timolol and 2 drops of 0.5% moxifloxacin. He was then lightly patched and shielded in the usual manner. There were no complications from the procedure. He tolerated the procedure well and was returned to outpatient recovery in good condition. HENOK / BRANT: [id number] /
== END 2023-11-10 10:44 | disposition home or self-care (01) ==
LOC: OR 07:13
PROVIDERS: ATTEND Ophthalmology
DX: H21.00 Hyphema, unspecified eye (principal); H20.9 Unspecified iridocyclitis; H40.9 Unspecified glaucoma; H57.03 Miosis

== ENCOUNTER 2024-02-25 08:20 | Day surgery (SDC) | payer MEDICARE ==
[2024-02-23 16:15] VITALS: BMI 29.4
[~2024-02-25 08:20] MED LIST changes: +LIDOCAINE 1% (10MG/ML) FOR IV START INTRADERMA PRN; -TETRACAINE 0.5% OPHTH (PF) DROPS 4 ML BTL OP PRN
[2024-02-25 08:40] VITALS: RESP 16; TEMP 97
[2024-02-25] MEDS: LACTATED RINGERS 1,000 ML IV SCH (08:54)
[2024-02-25 08:58] LABS: Glucose,Whole Blood 122 mg/dL (70-110)
[2024-02-25] MEDS ORDERED: PROPOFOL 10 MG/ML 20 ML VIAL IV ONE (09:25)
--- NOTE | 2024-02-25 09:51 | P.PCN ---
Date of Procedure: 02/25/24 Procedure(s) Performed: BRIEF HISTORY: Patient is a 68-year-old pleasant white male scheduled for an elective colonoscopy as a part of evaluation of positive Cologuard/screening for colon cancer PROCEDURE PERFORMED: Colonoscopy with snare polypectomy. PREOPERATIVE DIAGNOSIS: Positive Cologuard/screening for colon cancer. IV sedation per Anesthesia. PROCEDURE: After informed consent was obtained, the patient, was brought into the endoscopy unit. IV sedation was administered by Anesthesia under continuous monitoring. Digital rectal examination was normal. Initially the Olympus CF-160 flexible video colonoscope was then inserted in the rectum, gradually advanced into the cecum without any difficulty. Careful examination was performed as the scope was gradually being withdrawn. Ileocecal valve and the appendiceal orifice were visualized and appeared normal. Prep was excellent. Mucosa of the cecum, appeared normal. Descending colon there was a 1 cm flat polyp removed by snare polypectomy. Rest of the ascending colon, transverse colon, descending colon, sigmoid colon, and rectum appeared normal. Rectum there is a 1.2 cm polyp removed by snare polypectomy. Scattered sigmoid diverticulosis. Retroflexion was performed in the rectum and no lesions were seen. The patient tolerated the procedure well. IMPRESSION: 1 cm flat ascending colon polyp status post snare polypectomy 1.2 cm proximal rectal polyp status post polypectomy Scattered sigmoid diverticulosis RECOMMENDATIONS: Findings of this examination were discussed with the patient as well as his family. He was advised to follow-up with the biopsy results. If the biopsy reveals adenoma he can have repeat colonoscopy in 3 years.
[2024-02-25 10:10] VITALS: BP 112/72
[2024-02-25 10:24] VITALS: PULSE 64
== END 2024-02-25 10:47 | disposition home or self-care (01) ==
LOC: ORWHC2ENDO 08:20
PROVIDERS: ATTEND Internal Medicine Gastroenterology
DX: D12.8 Benign neoplasm of rectum (principal); K57.30 Diverticulosis of large intestine without perforation or abscess without bleeding; E11.9 Type 2 diabetes mellitus without complications; M19.90 Unspecified osteoarthritis, unspecified site; Z87.442 Personal history of urinary calculi; Z87.891 Personal history of nicotine dependence; Z86.711 Personal history of pulmonary embolism; Z79.01 Long term (current) use of anticoagulants; Z79.899 Other long term (current) drug therapy; Z91.040 Latex allergy status; Z79.84 Long term (current) use of oral hypoglycemic drugs
CPT/HCPCS: 88305; 45385; J2704

== ENCOUNTER 2024-03-15 06:46 | Day surgery (SDC) | payer MEDICARE ==
[2024-03-10 10:13] VITALS: BMI 27.9
[~2024-03-15 06:46] MED LIST changes: -LIDOCAINE 1% (10MG/ML) FOR IV START INTRADERMA PRN; +MOXIFLOXACIN HCL 0.5% DROPS 3 ML BTL OP PRN; +TETRACAINE 0.5% OPHTH (PF) DROPS 4 ML BTL OP PRN; +TIMOLOL 0.5% OPHTH DROPS 5 ML BTL OP PRN
[2024-03-15] MEDS: PILOCARPINE 2% OPHTH DROPS 15 ML BTL OP PRN (07:22)
[2024-03-15] MEDS: LACTATED RINGERS 1,000 ML IV SCH (07:31)
[2024-03-15] MEDS: IV FLUID CONTINUATION 1,000 ML IV ONE (07:31)
[2024-03-15 07:46] VITALS: TEMP 97.9
[2024-03-15 07:46] LABS: Glucose,Whole Blood 104 mg/dL (70-110)
[2024-03-15] MEDS ORDERED: fentaNYL (PF) 50 MCG/ML 2 ML AMP ONE (08:14)
[2024-03-15] MEDS: EPINEPHrine (PF) 0.3 ML in BALANCED SALT IRRIG SOLN COMB2 500 ML IRRIGATION ONE (08:22)
[2024-03-15] MEDS: TRYPAN BLUE 0.06% SYRINGE 0.5 ML SYRINGE MISCELLANE ONE (08:23)
[2024-03-15] MEDS: MOXIFLOXACIN HCL 0.5% DROPS 3 ML BTL RIGHT EYE ONE (08:24)
[2024-03-15] MEDS: TIMOLOL 0.5% OPHTH DROPS 5 ML BTL RIGHT EYE ONE (08:25)
[2024-03-15] MEDS: LIDOCAINE 1% PF 10 MG/ML (5 ML AMP) SQ ONE (08:25)
[2024-03-15] MEDS: BALANCED SALT IRRIG SOLN COMB2 15 ML IRRIG.SOLN IRRIGATION ONE (08:26)
--- NOTE | 2024-03-15 08:48 | P.OP ---
Date of Procedure: 03/15/24 Preoperative Diagnosis: glaucoma poorly controlled Postoperative Diagnosis: same Procedure(s) Performed: goniotomy right eye Implants: none Anesthesia: MAC Surgeon: Jorge Virk Pathology: none sent Condition: stable Disposition: same day Indications for Procedure: glaucoma Operative Findings: no complications
[2024-03-15 09:02] VITALS: RESP 16
[2024-03-15 09:24] VITALS: BP 131/87; PULSE 67
--- NOTE | 2024-03-16 09:44 | OP ---
OPERATIVE REPORT DATE OF SERVICE : 03/15/2024 PROCEDURE: Goniotomy of the right eye. 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 POSTOPERATIVE DIAGNOSIS: Inflammatory glaucoma of the right eye. ANESTHESIA: Topical. ESTIMATED BLOOD LOSS: Less than 5 mL. SPECIMEN TAKEN: None. NARRATIVE: After obtaining the appropriate consent, the patient was brought to the operating room, there he was placed under cardiac monitoring, prepped and draped in the usual sterile manner. At the temporal 9 o'clock position, a 2.5 mm keratome was used to create a self-sealing corneal flap incision. Through this opening, 1% Xylocaine MPF 50:50 mix with balanced salt solution was injected into the anterior chamber. This was followed by Trypan blue, which was allowed to dwell for 90 seconds. Once irrigated away with balanced salt solution, Viscoat was then used to stabilize the anterior chamber and provide an optical coupling on the cornea for the next stage of the procedure. He was then asked to rotate his head and maintain a gaze approximately 45 degrees towards his left. The gonioprism was placed on the patient's eye and using an inside-out technique, the goniotomy knife was passed across the anterior chamber and removed approximately 5 to 6 clock hours of nasal trabecular meshwork. All remaining viscoelastic was then removed from the anterior chamber with the irrigation and aspiration and the eye was brought to slightly above normal intra-ocular pressure with balanced salt solution at the temporal incision once the incision was hydrated. He then received 2 drops of 0.5% timolol followed by 2 drops of moxifloxacin. He was then lightly patched and shielded in the usual manner. There were no complications from the procedure. He tolerated the procedure well and was returned to outpatient recovery in good condition. MMODL / IJN: [id number] /
== END 2024-03-15 09:35 | disposition home or self-care (01) ==
LOC: OR 06:46
PROVIDERS: ATTEND Ophthalmology
DX: H40.9 Unspecified glaucoma (principal); Z86.711 Personal history of pulmonary embolism; Z91.040 Latex allergy status; Z79.01 Long term (current) use of anticoagulants; Z86.718 Personal history of other venous thrombosis and embolism; Z98.890 Other specified postprocedural states
CPT/HCPCS: 65820; J0171; J2003; J3010

== ENCOUNTER 2024-06-28 07:17 | Day surgery (SDC) | payer MEDICARE ==
[2024-06-23 15:23] VITALS: BMI 30.5
[~2024-06-28 07:17] MED LIST changes: +DEXAMETHASONE SOD PHOSPHATE 4 MG/ML 1 ML VIAL IV ONE; +HYDROmorphone 0.5 MG/0.5 ML SYRINGE IVP PRN; -MOXIFLOXACIN HCL 0.5% DROPS 3 ML BTL OP PRN; +ONDANSETRON 4 MG/2 ML VIAL IVP ONE; -TIMOLOL 0.5% OPHTH DROPS 5 ML BTL OP PRN
[2024-06-28 08:11] VITALS: TEMP 97.5
[2024-06-28] MEDS: PILOCARPINE 2% OPHTH DROPS 15 ML BTL OP PRN (08:13)
[2024-06-28] MEDS: IV FLUID CONTINUATION 1,000 ML IV ONE (08:14)
[2024-06-28] MEDS: LACTATED RINGERS 1,000 ML IV SCH (08:17)
[2024-06-28 08:21] LABS: Glucose,Whole Blood 121 mg/dL (70-110)
[2024-06-28] MEDS ORDERED: fentaNYL (PF) 50 MCG/ML 2 ML AMP ONE (08:57)
[2024-06-28] MEDS ORDERED: MIDAZOLAM 2 MG/2 ML VIAL ONE (08:57)
[2024-06-28] MEDS: BALANCED SALT IRRIG SOLN COMB2 15 ML IRRIG.SOLN IRRIGATION ONE (09:14)
[2024-06-28] MEDS: LIDOCAINE 2%-EPI 1:100,000 20 ML VIAL SQ ONE (09:14)
[2024-06-28] MEDS: ATROPINE OPHTH SOLN 1% 5ML BTL OPHTHALMIC PRN (09:18)
[2024-06-28] MEDS: MOXIFLOXACIN HCL 0.5% DROPS 3 ML BTL RIGHT EYE ONE (09:19)
[2024-06-28] MEDS: mitoMYcin for Eyes 0.06 MG, EMPTY SYRINGE 1 SYR OP ONE (09:19)
[2024-06-28] MEDS: FLUORESCEIN STRIPS 1 MG STRIP RIGHT EYE ONE ×2 (09:44)
--- NOTE | 2024-06-28 10:08 | P.OP ---
Date of Procedure: 06/28/24 Preoperative Diagnosis: UGH syndrome, 2 glaucoma Postoperative Diagnosis: same Procedure(s) Performed: shunt implantation w/ MMC 0.2mg/ml x 3' Implants: Ex-Press shunt P-50 Anesthesia: MAC Surgeon: Jorge Virk Pathology: none sent Condition: stable Disposition: same day Indications for Procedure: IOP control problem Operative Findings: no complications
[2024-06-28 11:21] VITALS: BP 122/74; PULSE 67; RESP 18
--- NOTE | 2024-06-28 22:35 | OP ---
OPERATIVE REPORT DATE OF SERVICE : 06/28/2024 PROCEDURE PERFORMED: Express shunt implantation with mitomycin augmentation. PREOPERATIVE DIAGNOSES: Vldsbbe-Trdyuynu-Jtdwjcr syndrome with chronic secondary glaucoma, severe stage. POSTOPERATIVE DIAGNOSIS: Uvwjtrh-Jxppfnvp-Jiuclrk syndrome with chronic secondary glaucoma, severe stage. ANESTHESIA: Topical. ESTIMATED BLOOD LOSS: Less than 5 mL. SPECIMEN TAKEN: None. NARRATIVE: After obtaining the appropriate consent, the patient was brought to the operating room. There he was placed under cardiac monitoring and prepped and draped in the usual sterile manner. He was approached from the 12 o'clock position and using a 6-0 silk suture on a taper needle, the eye was rotated into a down gaze and traction was maintained in that general direction. At the superior temporal quadrant, the conjunctiva was elevated with 0.12 forceps, and Colleen scissors were used to cut the conjunctival tissue down to bare sclera. Using blunt dissection, a large pocket from 9 o'clock to 3 o'clock was created to create a large reservoir, which would advance over the equator of the eye. Using 2% lidocaine with epinephrine, the conjunctiva was anesthetized directly with 2% lidocaine and epinephrine. Beginning from the temporal incision, a small limbal peritomy was performed to approximately the 12 o'clock position. Hemostasis was obtained using bipolar cautery and all areas within the field of the sclerotomy were confirmed dry prior to outlining the bed of the partial- thickness scleral flap. At approximately 1130, a 3 x 3 mm square area was identified. A partial thickness flap was raised using a crescent blade and Colleen scissors. Once the scleral flap was raised, a Weck-Adri sponge with mitomycin 0.2 mg/mL was placed in the bed and covered with the conjunctiva for approximately 3 minutes. This was removed. The whole area was irrigated copiously with balanced salt solution and centrally at the apex of the partial-thickness scleral flap, a 27-gauge hypodermic needle was used as a trocar to create an opening into the anterior chamber parallel to the iris. Once this was accomplished, the Express model P50 shunt was then advanced through the opening and was secured into the anterior chamber. Balanced salt solution was used to confirm aqueous drainage from the anterior chamber. Additional light bipolar cautery was used to ensure all areas were hemostatically dry and the partial- thickness scleral flap was secured using 2 interrupted 10-0 nylon sutures on either side of the previously created flap. Once again, fluorescein was used to confirm adequate drainage of aqueous from the anterior chamber. The pressure noted at this time was approximately 0 mmHg, which was markedly down from the initial pressure noted with a Schiotz tonometer of 29 mm using a 5.5 mm weight. Conjunctiva was then brought back over the superior limbus of the cornea and secured in the superior temporal quadrant using two 8-0 Vicryl sutures. The traction suture previously placed at the limbus of the cornea was removed. The patient then received 2 drops of 0.5% moxifloxacin and 2 drops of 1% atropine. He was then lightly patched and shielded in the usual manner. There were no complications from the procedure. He tolerated the procedure well and was returned to outpatient recovery in good condition. HENOK / PATRICIAN: [id number] /
== END 2024-06-28 11:26 | disposition home or self-care (01) ==
LOC: OR 07:17
PROVIDERS: ATTEND Ophthalmology
DX: H20.11 Chronic iridocyclitis, right eye (principal); H40.51X4 Glaucoma secondary to other eye disorders, right eye, indeterminate stage; H21.01 Hyphema, right eye; E11.9 Type 2 diabetes mellitus without complications; M19.90 Unspecified osteoarthritis, unspecified site; Z86.711 Personal history of pulmonary embolism; Z91.040 Latex allergy status; Z79.01 Long term (current) use of anticoagulants; Z79.84 Long term (current) use of oral hypoglycemic drugs
CPT/HCPCS: 66180; J2250; J3010